=== PATIENT | male | born 1930 | race Caucasian/White ===

== ENCOUNTER 2020-01-31 00:38 | Inpatient (IN) | payer MEDICARE ==
--- NOTE | 2020-01-31 01:27 | ER Document Report ---
ED Medical Screen (RME) - General Chief Complaint: Altered Mental Status Stated Complaint: BACK PAIN, SYNCOPE, FLU SYMPTOMS Time Seen by Provider: 01/31/20 01:21 Mode of Arrival: Ambulatory Information source: Patient Notes: 89-year-old male being brought in by his son for 3 syncopal episodes today as well as weakness and inability to walk his normal distances. No recent illness. Physical exam General: No acute distress, nontoxic Cardiac regular rate and rhythm Pulmonary: No respiratory distress Abdomen soft nondistended Musculoskeletal: Midline lumbar tenderness no step-off Neurologic: Deaf, no focal neuro deficits - Related Data Allergies/Adverse Reactions: No Known Allergies Allergy (Unverified 01/31/20 01:12) Past Medical History - Social History Frequency of alcohol use: None Drug Abuse: None Physical Exam - Vital signs Vitals: Pulse Resp BP Pulse Ox 74 14 106/56 L 95 01/31/20 01:02 01/31/20 01:02 01/31/20 01:02 01/31/20 01:02 Course - Vital Signs Vital signs: Temp Pulse Resp BP Pulse Ox 98.6 F 74 14 106/56 L 95 01/31/20 01:06 01/31/20 01:02 01/31/20 01:02 01/31/20 01:02 01/31/20 01:02
[2020-01-31 01:50] LABS: ABSOLUTE BASOPHILS # (AUTO) 0.1 10^3/uL (0.0-0.2); ABSOLUTE LYMPHOCYTES (AUTO) 0.9 10^3/uL (0.5-4.7); ABSOLUTE MONOCYTES (AUTO) 1.4 10^3/uL (0.1-1.4); ABSOLUTE NEUT (AUTO) 11.5 10^3/uL (1.7-8.2); BASOPHILS % (AUTO) 0.5 % (0-2); EOSINOPHILS % (AUTO) 0.1 % (0-6); HEMATOCRIT 46.9 % (37.9-51.0); HEMOGLOBIN 16.1 g/dL (13.5-17.0); LYMPHOCYTES % (AUTO) 6.4 % (13-45); MEAN CORPUSCULAR HEMOGLOBIN 31.9 pg (27.0-33.4); MEAN CORPUSCULAR HGB CONC 34.2 g/dL (32.0-36.0); MEAN CORPUSCULAR VOLUME 93 fl (80-97); MONOCYTES % (AUTO) 10.4 % (3-13); PLATELET COUNT 133 10^3/uL (150-450); RED BLOOD COUNT 5.04 10^6/uL (4.35-5.55); RED CELL DISTRIBUTION WIDTH 14.5 % (11.5-14.0); SEGMENTED NEUTROPHILS % (AUTO) 82.6 % (42-78); TOTAL CELLS COUNTED % (AUTO) 100 %; WHITE BLOOD COUNT 13.9 10^3/uL (4.0-10.5)
[2020-01-31 02:01] LABS: INTERNATIONAL RATION (INR) 1.12; PROTHROMBIN TIME 14.6 SEC (11.4-15.4)
[2020-01-31 02:02] LABS: PARTIAL THROMBOPLASTIN TIME 30.3 SEC (23.5-35.8)
[2020-01-31 02:12] LABS: ALKALINE PHOSPHATASE 71 U/L (38-126); ANION GAP 11 (5-19); ASPARTATE AMINO TRANSFERASE 22 U/L (17-59); BILIRUBIN,DIRECT 0.4 mg/dL (0.0-0.4); BILIRUBIN,TOTAL 2.2 mg/dL (0.2-1.3); BLOOD UREA NITROGEN 21 mg/dL (7-20); CARBON DIOXIDE 25 mmol/L (22-30); CHLORIDE 101 mmol/L (98-107); GLUCOSE 157 mg/dL (75-110); POTASSIUM 4.7 mmol/L (3.6-5.0); TOTAL PROTEIN 6.3 g/dL (6.3-8.2)
[2020-01-31 02:33] LABS: APPEARANCE,URINE CLOUDY; BILIRUBIN,URINE NEGATIVE (NEGATIVE); COLOR,URINE YELLOW; GLUCOSE, URINE >=500 mg/dL (NEGATIVE); KETONES,URINE NEGATIVE (NEGATIVE); PROTEIN,URINE 30 mg/dL (NEGATIVE); URINE SPECIFIC GRAVITY 1.026; UROBILINOGEN,URINE NEGATIVE mg/dL (<2.0)
--- NOTE | 2020-01-31 03:09 | RADIOLOGY REPORT (SQ) ---
COMPLETED DATE/TME: 01/31/2020 01:21 EXAM: CT head without contrast. INDICATION: Syncope. TECHNIQUE: Contiguous axial CT images of the brain. Intravenous contrast: Absent. DLP 1028 mGy-cm. This exam was performed according to our departmental dose-optimization program, which includes automated exposure control, adjustment of the mA and/or kV according to patient size and/or use of iterative reconstruction technique. COMPARISON: None. FINDINGS: Subcutaneous: Unremarkable. No acute intracranial hemorrhage. Brain volume is age-appropriate. There are mild periventricular and deep white matter chronic microvascular changes. No midline shift. No mass effect. Ventricles: No hydrocephalus. Johnson-white differentiation preserved. Paranasal sinuses/mastoid air cells: Mucus retention cyst in the right ethmoid air cells. No air-fluid levels. Mastoid air cells are clear. Bones/orbits: Visualized portions are unremarkable. IMPRESSION: No acute intracranial abnormality.
--- NOTE | 2020-01-31 03:14 | RADIOLOGY REPORT (SQ) ---
COMPLETED DATE/TME: 01/31/2020 01:21 EXAM: CT cervical spine without contrast. INDICATION: Trauma. Neck pain. TECHNIQUE: Contiguous axial CT images of the cervical spine. Intravenous contrast: Absent. Reformats: MPRs created and utilized. DLP 445 mGy-cm. This exam was performed according to our departmental dose-optimization program, which includes automated exposure control, adjustment of the mA and/or kV according to patient size and/or use of iterative reconstruction technique. COMPARISON: None. FINDINGS: Alignment: Mild grade 1 anterolisthesis of C7 over T1. Fracture: No acute fracture or subluxation. Old healed bilateral first rib fractures are noted. Odontoid process: Intact. Prevertebral soft tissues: No edema. Spondylosis: There is multilevel spondylosis with disc space narrowing, endplate sclerosis, subchondral cysts and marginal osteophytes. There is multilevel facet arthropathy with ankylosis of the left C2-C3 facet joints. There is severe left-sided neural foraminal narrowing at C3-C4. There is moderate right-sided neural foraminal narrowing at C3-C4 and C4-C5. Other: None. IMPRESSION: 1. No CT evidence of acute osseous injury of the cervical spine.
--- NOTE | 2020-01-31 03:18 | RADIOLOGY REPORT (SQ) ---
COMPLETED DATE/TME: 01/31/2020 01:21 EXAM: Single view chest. INDICATION: Syncope. COMPARISON: Chest x-ray: None. FINDINGS: Cardiac silhouette: Unremarkable. Cecilia: Unremarkable. Lobar consolidation: None. Pleural effusion: None. Pneumothorax: None. Other: Median sternotomy wires. Bones: Unremarkable. Other: None. IMPRESSION: 1. No acute cardiopulmonary process.
--- NOTE | 2020-01-31 03:23 | RADIOLOGY REPORT (SQ) ---
INDICATION: syncope. Back pain TECHNIQUE: 5 view(s) of the lumbar spine. 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 No anteroposterior subluxation. Mild remodeling. Osteoarthritis. Vertebral body heights are well-maintained. Aortic calcification which appears to have a borderline aneurysm at 2.7 cm. Psoas margins are clean and regular. IMPRESSION: No evidence of acute displaced fracture of the lumbar spine. Scoliosis. Osteoarthritis. Small infrarenal AAA
--- NOTE | 2020-01-31 08:34 | EKG REPORT ---
SEVERITY:- ABNORMAL ECG - SINUS RHYTHM LEFT ANTERIOR FASCICULAR BLOCK CONSIDER RIGHT VENTRICULAR HYPERTROPHY BORDERLINE R WAVE PROGRESSION, ANTERIOR LEADS : Confirmed by: Hyacinth Baltazar MD 31-Jan-2020 08:33:37
[2020-01-31] MEDS ORDERED: NORMAL SALINE 1000 ML 1,000 ML IV ONE (10:06)
[2020-01-31] MEDS ORDERED: CEFTRIAXONE 1 GM/D5W RTU 1 GM/50 ML RTUPB IV ONE (10:06)
--- NOTE | 2020-01-31 11:39 | ER Document Report ---
ED Dizziness/Weakness - General Chief Complaint: Altered Mental Status Stated Complaint: BACK PAIN, SYNCOPE, FLU SYMPTOMS Time Seen by Provider: 01/31/20 01:21 Primary Care Provider: VINCENT MASTERSON MD [Primary Care Provider] - Follow up as needed Mode of Arrival: Ambulatory Information source: Patient, Relative - Son - [facility] Notes: Patient is brought in by family after several episodes of syncope yesterday. Most of the history is obtained from the son whom the patient lives with. The son states that is just the 2 of them in the house. He states that he came home yesterday and found stool all over the bathroom. He states when he asked his father what happened his father told him that he passed out but does not remember why. The son states that his father then had 2 more episodes of syncope throughout yesterday. He states that he was also complaining of low back pain yesterday that was severe enough that he was having a hard time walking. He states that the pain was there before he started having the episodes of syncope and increased after the syncope. Patient is on a known blood thinners. 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 He states that he gets some occa sional infections of the penis area and is currently on an antifungal for an infection in this area. The patient does states he has some dysuria. No fevers. He states that his low back pain was severe and constant. Is worse with movement and better with rest. There is no significant radiation of this pain. It is still present but significantly better than yesterday. No significant chest pain or shortness of breath. - Related Data Allergies/Adverse Reactions: No Known Allergies Allergy (Unverified 01/31/20 01:12) Past Medical History - General Information source: Patient - Social History Smoking Status: Former Smoker Frequency of alcohol use: None Drug Abuse: None Family History: Reviewed & Not Pertinent Patient has homicidal ideation: No - Past Medical History Cardiac Medical History: Reports: Hx Heart Attack, Hx Hypercholesterolemia, Hx Hypertension Endocrine Medical History: Reports: Hx Diabetes Mellitus Type 2 GI Medical History: Reports: Hx Gastroesophageal Reflux Disease Musculoskeletal Medical History: Reports Hx Arthritis Past Surgical History: Reports: Hx Cardiac Surgery - triple bypass 1 stent Review of Systems - Review of Systems Constitutional: Malaise, Weakness. denies: Chills, Fever Cardiovascular: denies: Chest pain, Palpitations Respiratory: denies: Cough, Short of breath -: Yes All other systems reviewed and negative Physical Exam - Vital signs Vitals: Pulse Resp BP Pulse Ox 74 14 106/56 L 95 01/31/20 01:02 01/31/20 01:02 01/31/20 01:02 01/31/20 01:02 Interpretation: Normal - General General appearance: Appears well, Alert In distress: None - HEENT Head: Normocephalic, Atraumatic Ears: Normal Nasal: Normal Mouth/Lips: Normal Mucous membranes: Moist - Respiratory Respiratory status: No respiratory distress Chest status: Nontender Breath sounds: Normal Chest palpation: Normal - Cardiovascular Rhythm: Regular Heart sounds: Normal auscultation Murmur: No - Abdominal Inspection: Normal Distension: No distension Bowel sounds: Normal Tenderness: Nontender Organomegaly: No organomegaly - Genitourinary Inspection: Other - 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 This area is slightly erythematous and has watery white discharge.. - Back Back: Normal, Tender - Some mild diffuse tenderness to palpation lumbar area - Extremities General upper extremity: Normal inspection, Nontender, Normal color, Normal ROM, Normal temperature General lower extremity: Normal inspection, Nontender, Normal color, Normal ROM, Normal temperature, Normal weight bearing. No: Alexandria's sign - Neurological Cognition: Confused [place] Coma Scale Eye Opening: Spontaneous Geronimo Coma Scale Verbal: Confused Geronimo Coma Scale Motor: Obeys Commands Asia Coma Scale Total: 14 Speech: Normal Motor strength normal: LUE, RUE, LLE, RLE Sensory: Normal - Psychological Associated symptoms: Normal affect, Normal mood - Skin Skin Temperature: Warm Skin Moisture: Dry Skin Color: Normal Course - Re-evaluation Re-evalutation: 01/31/20 11:38 Patient presents with 3 episodes of syncope yesterday per son. He also has a urinary tract infection and an elevated white blood cell count. 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 At this time patient is stable with stable vital signs. Laboratories are remarkable for a urinary tract infection and an elevated white blood cell count. Given the patient's age past medical history and current unknown etiology of 3 episodes of syncope it seems prudent that patient is admitted for further evaluation and treatment. - Vital Signs Vital signs: Temp Pulse Resp BP Pulse Ox 98.2 F 76 15 136/69 H 98 01/31/20 08:23 01/31/20 08:20 01/31/20 11:01 01/31/20 11:00 01/31/20 11:01 - Laboratory Result Diagrams: 01/31/20 01:41 01/31/20 01:41 Laboratory results interpreted by me: 01/31/20 01/31/20 01/31/20 01:41 01:41 01:55 WBC 13.9 H RDW 14.5 H Plt Count 133 L Lymph % (Auto) 6.4 L Absolute Neuts (auto) 11.5 H Seg Neutrophils % 82.6 H Sodium 136.5 L BUN 21 H Est GFR (MDRD) Non-Af 58 L Glucose 157 H Total Bilirubin 2.2 H Urine Protein 30 H Urine Glucose (UA) >=500 H Urine Blood LARGE H Leukocyte Esterase Rfl LARGE H - Diagnostic Test Radiology reviewed: Image reviewed, Reports reviewed - EKG Interpretation by Me EKG shows normal: Sinus rhythm Rate: Normal - 72 Rhythm: NSR [place]/QRS: LAHB/LAFB Discharge - Discharge Clinical Impression: Syncope and collapse UTI (urinary tract infection) Qualifiers: Urinary tract infection type: acute cystitis Hematuria presence: without hematuria Qualified Code(s): N30.00 - Acute cystitis without hematuria Condition: Stable Disposition: ADMITTED INPATIENT Admitting Provider: Cameron (Hospitalist) Unit Admitted: Telemetry Referrals: VINCENT MASTERSON MD [Primary Care Provider] - Follow up as needed
[2020-01-31] MEDS ORDERED: NORMAL SALINE 1000 ML 1,000 ML IV PRN ×2 (12:59→19:58)
[2020-01-31] MEDS ORDERED: ACETAMINOPHEN 325 MG TABLET PO PRN (12:59)
[2020-01-31] MEDS ORDERED: MAGNESIUM HYDROXIDE SUSP 30 ML UDCUP PO PRN (12:59)
[2020-01-31] MEDS ORDERED: ONDANSETRON HCL INJ/PF 4 MG/2 ML SDV IV PRN (12:59)
[2020-01-31 14:01] LABS: ABSOLUTE BASOPHILS # (AUTO) 0.1 10^3/uL (0.0-0.2); ABSOLUTE MONOCYTES (AUTO) 1.1 10^3/uL (0.1-1.4); ABSOLUTE NEUT (AUTO) 9.4 10^3/uL (1.7-8.2); BASOPHILS % (AUTO) 0.7 % (0-2); EOSINOPHILS % (AUTO) 0.2 % (0-6); HEMATOCRIT 41.8 % (37.9-51.0); HEMOGLOBIN 14.5 g/dL (13.5-17.0); LYMPHOCYTES % (AUTO) 8.4 % (13-45); MEAN CORPUSCULAR HEMOGLOBIN 32.4 pg (27.0-33.4); MEAN CORPUSCULAR HGB CONC 34.7 g/dL (32.0-36.0); MEAN CORPUSCULAR VOLUME 93 fl (80-97); MONOCYTES % (AUTO) 9.8 % (3-13); PLATELET COUNT 110 10^3/uL (150-450); RED BLOOD COUNT 4.47 10^6/uL (4.35-5.55); RED CELL DISTRIBUTION WIDTH 14.2 % (11.5-14.0); SEGMENTED NEUTROPHILS % (AUTO) 80.9 % (42-78); TOTAL CELLS COUNTED % (AUTO) 100 %; WHITE BLOOD COUNT 11.6 10^3/uL (4.0-10.5)
[2020-01-31 14:26] LABS: ALBUMIN 3.2 g/dL (3.5-5.0); ALKALINE PHOSPHATASE 59 U/L (38-126); ANION GAP 8 (5-19); ASPARTATE AMINO TRANSFERASE 21 U/L (17-59); BILIRUBIN,DIRECT 0.5 mg/dL (0.0-0.4); BILIRUBIN,TOTAL 1.8 mg/dL (0.2-1.3); BLOOD UREA NITROGEN 20 mg/dL (7-20); CALCIUM 9.2 mg/dL (8.4-10.2); CARBON DIOXIDE 23 mmol/L (22-30); CHLORIDE 107 mmol/L (98-107); CREATINE KINASE 61 U/L (55-170); GLUCOSE 197 mg/dL (75-110); PHOSPHORUS 2.8 mg/dL (2.5-4.5); POTASSIUM 4.1 mmol/L (3.6-5.0); TOTAL PROTEIN 5.5 g/dL (6.3-8.2)
[2020-01-31 14:35] LABS: TROPONIN I 0.019 ng/mL
[2020-01-31] MEDS ORDERED: DEXTROSE 50%-WATER 25 GM/50 ML DISP.SYRIN IV PRN ×2 (17:35)
[2020-01-31] MEDS ORDERED: DEXTROSE 40% GEL 15 GM TUBE PO PRN ×2 (17:35)
[2020-01-31] MEDS ORDERED: GLUCAGON,HUMAN RECOMB 1 MG INJ IM PRN (17:35)
[2020-01-31] MEDS ORDERED: (PENDING PHARMACY ID) (Brimonidine Tartrate [Alphagan P] 1 DROP) OS SCH ×2 (18:00→18:15)
[2020-01-31] MEDS ORDERED: (PENDING PHARMACY ID) (Bimatoprost [Lumigan 0.01% Oph Soln 2.5 Ml/Bottle] 1 DROP) OU SCH (18:00)
--- NOTE | 2020-01-31 18:14 | PDOC H&P ---
History of Present Illness Admission Date/PCP: 01/31/20 12:01 VINCENT MASTERSON MD Patient complains of: Syncope History of Present Illness: ELIJAH RITTER is a 89 year old male with past medical history of [place] with stents, HLD, CAD, HTN, DMII, GERD, arthritis, AAA, and dementia who is brought to the emergency department by family on 01/30/2020 with concerns regarding multiple episodes of his syncope. Majority of the patient's history is obtained from the son whom the patient lives with. Patient son reports 4 syncopal episodes, one of which he witnessed. Per patient's son the first syncopal episode occurred after patient stepped out of the shower to pass a bowel movement. Patient's son came home to find stool on the bathroom floor and towels. The observed stool was pasty, thick and brown in color. No blood noted. Second episode occurred when patient was in the bathroom. This was unwitnessed and patient was found unconscious on the bathroom floor with his brief on but shorts at his ankles. Third episode after patient stood up from being in bed to go to the bathroom. He fell to the floor but maintained consciousness and recalls event. Fourth episode was witnessed. Patient and his son were walking down the stairs when patient asked to sit down, patient closed his eyes, rested his head on his son's arm, became stiff and came to within one minute. Per patient's son patient has 4 week history of frequent loose stools with associated lower abdominal pain. 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 Current 4 week history penile infection, on Fluconazole PO. Patient has reportedly been complaining of dysuria with a ssociated increased urinary frequency. When asked patient only complains of back pain. This is reportedly ongoing but has recently increased in severity since syncopal episodes. Evaluation in the emergency department significant for leukocytosis (11.6), thrombocytopenia (110), neutrophilia, CBC otherwise unremarkable. BMP noted hyperglycemia (197), lactic acidosis (2.8), hyperbilirubinemia (1.8), elevated BNP (1140). Urine analysis indicative of urinary tract infection. Vital signs stable. Radiographic studies were unremarkable. EKG sinus rhythm rate of 72bpm, LAHB/LAFB. Patient was treated with single dose of Ceftriaxone in the ED. Patient was subsequently refereed to hospital services for further evaluation and treatment. Past Medical History Cardiac Medical History: Reports: Congestive Heart Failure, Coronary Artery Disease, Myocardial Infarction, Hyperlipidema, Hypertension Neurological Medical History: Reports: Other - Dementia Endocrine Medical History: Reports: Diabetes Mellitus Type 2 GI Medical History: Reports: Gastroesophageal Reflux Disease Musculoskeltal Medical History: Reports: Arthritis Past Surgical History Past Surgical History: Reports: Cardiac Catheterization, Coronary Artery Bypass Graft, Coronary Stent, Other - Penile amputation Social History Information Source: Relative Lives with: Family Smoking Status: Former Smoker Electronic Cigarette use?: No Frequency of Alcohol Use: Rare Hx Recreational Drug Use: No Drugs: None Hx Prescription Drug Abuse: No - Advance Directive Resuscitation Status: Do Not Resuscitate Family History Family History: Reviewed & Not Pertinent Parental Family History Reviewed: Yes Children Family History Reviewed: Yes Sibling(s) Family History Reviewed.: Yes Medication/Allergy Home Medications: Aspirin [Ecotrin 81 mg EC Tablet] 81 mg PO DAILY 01/31/20 Atorvastatin Calcium [Lipitor 40 mg Tablet] 40 mg PO QHS 01/31/20 Bimatoprost [Lumigan 0.01% Oph Soln 2.5 ml/Bottle] 1 drop OU QPM 01/31/20 Brimonidine Tartrate [Alphagan P] 1 drop OS BID 01/31/20 Canagliflozin [Invokana] 100 mg PO [id number] 01/31/20 Cholecalciferol (Vitamin D3) [Vitamin D3 1000 Unit Tablet] 1,000 unit PO DAILY 01/31/20 Clopidogrel Bisulfate [Plavix 75 mg Tablet] 75 mg PO DAILY 01/31/20 Donepezil HCl [Aricept 5 mg Tablet] 10 mg PO DAILY 01/31/20 Furosemide [Lasix 20 mg Tablet] 20 mg PO QAM 01/31/20 Ipratropium [place] [Atrovent 0.06% Nasal [place]] 2 spray NASL TID 01/31/20 Isosorbide Mononitrate [Imdur 30 mg Tablet.er] 15 mg PO DAILY 01/31/20 Metoprolol Tartrate [Lopressor 25 mg Tablet] 12.5 mg PO Q12 01/31/20 Nitroglycerin [Nitrostat 0.4 mg (1/150 Gr) Tabs 25/Bottle] 1 tab SL Q5MP PRN 01/31/20 Omeprazole 40 mg PO DAILY 01/31/20 Potassium Chloride [Klor-Con 10 Meq Tablet ER] 10 meq PO DAILY 01/31/20 Sucralfate [Carafate 1 gm Tablet] 1 gm PO ACHS 01/31/20 Trazodone HCl [Desyrel 50 mg Tablet] 150 mg PO QHS 01/31/20 Allergies/Adverse Reactions: No Known Allergies Allergy (Unverified 01/31/20 01:12) Review of Systems Constitutional: PRESENT: weakness. ABSENT: anorexia, headache(s) Eyes: PRESENT: visual disturbances - Chronic Nose, Mouth, and Throat: ABSENT: headache(s) Cardiovascular: ABSENT: chest pain, dyspnea on exertion, edema, palpitations Respiratory: ABSENT: cough, dyspnea Gastrointestinal: PRESENT: diarrhea. ABSENT: abdominal pain, nausea, vomiting Genitourinary: PRESENT: dysuria, other - Increased urinary frequency. ABSENT: hematuria Musculoskeletal: PRESENT: back pain - Chronic Integumentary: PRESENT: erythema - Penis foreskin erythematous Neurological: PRESENT: dizziness, frequent falls, memory loss, syncope, weakness, other - Dementia. ABSENT: abnormal speech, paresthesias, tremor(s) Endocrine: ABSENT: polydipsia, polyphagia, polyuria Hematologic/Lymphatic: ABSENT: easy bleeding Physical Exam Vital Signs: Temp Pulse Resp BP Pulse Ox 98.4 F 74 21 H 110/65 91 L 01/31/20 13:00 01/31/20 11:20 01/31/20 14:01 01/31/20 14:00 01/31/20 14:01 Intake & Output 01/30/20 01/31/20 02/01/20 06:59 06:59 06:59 Intake Total 1050 Balance 1050 Weight 66.7 kg General appearance: PRESENT: no acute distress, hard of hearing Head exam: PRESENT: atraumatic, normocephalic Eye exam: PRESENT: EOMI, PERRLA. ABSENT: scleral icterus Ear exam: PRESENT: normal external ear exam. ABSENT: bleeding, drainage Mouth exam: PRESENT: moist, tongue midline Neck exam: PRESENT: full ROM. ABSENT: JVD, tenderness, thyromegaly Respiratory exam: PRESENT: clear to auscultation reyes, symmetrical, unlabored. ABSENT: accessory muscle use, crackles, decreased breath sounds, tachypnea, wheezes Cardiovascular exam: PRESENT: RRR, +S1, +S2. ABSENT: diastolic murmur, systolic murmur Pulses: PRESENT: normal radial pulses, normal dorsalis pedis pul Vascular exam: PRESENT: normal capillary refill GI/Abdominal exam: PRESENT: normal bowel sounds, soft. ABSENT: distended, firm, guarding, rigid, tenderness Rectal exam: PRESENT: deferred Extremities exam: PRESENT: full ROM. ABSENT: calf tenderness, clubbing, pedal edema Musculoskeletal exam: PRESENT: full ROM. ABSENT: deformity, dislocation Neurological exam: PRESENT: alert, awake, oriented to person, oriented to place Psychiatric exam: PRESENT: appropriate affect, normal mood Skin exam: PRESENT: erythema - Partial penile amputation the stump is covered by foreskin. The area is slightly erythematous with watery white discharge., skin tears - scattered, other - Scattered areas of ecchymosis. Thin skin.. ABSENT: abrasion Results Laboratory Results: 01/31/20 13:47 01/31/20 13:47 01/31/20 01/31/20 01/31/20 01:41 01:41 01:55 WBC 13.9 H RBC 5.04 Hgb 16.1 Hct 46.9 MCV 93 MCH 31.9 MCHC 34.2 RDW 14.5 H Plt Count 133 L Seg Neutrophils % 82.6 H Sodium 136.5 L Potassium 4.7 Chloride 101 Carbon Dioxide 25 Anion Gap 11 BUN 21 H Creatinine 1.18 Est GFR ( Amer) > 60 Glucose 157 H Lactic Acid Calcium 10.0 Phosphorus Magnesium Total Bilirubin 2.2 H AST 22 Alkaline Phosphatase 71 Total Protein 6.3 Albumin 4.0 Urine Color YELLOW Urine Appearance CLOUDY Urine pH 5.0 Ur Specific [place] 1.026 Urine Protein 30 H Urine Glucose (UA) >=500 H Urine Ketones NEGATIVE Urine Blood LARGE H Urine RBC (Auto) 36 01/31/20 01/31/20 01/31/20 13:47 13:47 13:47 WBC 11.6 H RBC 4.47 Hgb 14.5 Hct 41.8 MCV 93 MCH 32.4 MCHC 34.7 RDW 14.2 H Plt Count 110 L Seg Neutrophils % 80.9 H Sodium 137.6 Potassium 4.1 Chloride 107 Carbon Dioxide 23 Anion Gap 8 BUN 20 Creatinine 1.15 Est GFR ( Amer) > 60 Glucose 197 H Lactic Acid 2.8 H Calcium 9.2 Phosphorus 2.8 Magnesium 2.2 Total Bilirubin 1.8 H AST 21 Alkaline Phosphatase 59 Total Protein 5.5 L Albumin 3.2 L Urine Color Urine Appearance Urine pH Ur Specific [place] Urine Protein Urine Glucose (UA) Urine Ketones Urine Blood Urine RBC (Auto) 01/31/20 01/31/20 01/31/20 01:41 13:47 13:47 Creatine Kinase 61 Troponin I 0.017 0.019 NT-Pro-B Natriuret Pep 1140 H Impressions: Cervical Spine CT 01/31/20 01:21 IMPRESSION: 1. No CT evidence of acute osseous injury of the cervical spine. Chest X-Ray 01/31/20 01:21 IMPRESSION: 1. No acute cardiopulmonary process. Head CT 01/31/20 01:21 IMPRESSION: No acute intracranial abnormality. Lumbar Spine X-Ray 01/31/20 01: IMPRESSION: No evidence of acute displaced fracture of the lumbar spine. Scoliosis. Osteoarthritis. Small infrarenal AAA Assessment and Plan - Diagnosis (1) UTI (urinary tract infection) Qualifiers: Urinary tract infection type: acute cystitis Hematuria presence: without hematuria Qualified Code(s): N30.00 - Acute cystitis without hematuria Is this a current diagnosis for this admission?: Yes Plan: Patient's labs significant for leukocytosis and urinary tract infection. Urine cultures pending. Will treat with Ceftriaxone. (2) Syncope and collapse Is this a current diagnosis for this admission?: Yes Plan: Suspect this is secondary to infectious etiology and volume depletion. Cardiac etiology less likely. -UA positive for UTI. -Patient with recent hx of volume loss via diarrhea, decreased appetite, in creased urinary frequency -Monitor for improvement with therapy (3) Leukocytosis Is this a current diagnosis for this admission?: Yes Plan: Suspect secondary to UTI. his has improved with fluids. Will monitor with CBC in the morning. (4) Lactic acidosis Is this a current diagnosis for this admission?: Yes Plan: Suspect secondary to infectious etiology. Redraw order. Suspect this will improve with current treatment regimen. (5) Coronary artery disease Qualifiers: Coronary Disease-Associated Artery/Lesion type: bypass graft [place] vs. transplanted heart: gray[place] heart Associated angina: without angina Qualified Code(s): I25.810 - Atherosclerosis of coronary artery bypass graft(s) without angina pectoris Is this a current diagnosis for this admission?: Yes Plan: History significant for CAD. Troponin is consistent at a minimally elevated level, what I would expect in someone of his age/cardiac history. EKG unremarkable. Continue with home treatment regimen (6) Hypertension Qualifiers: Hypertension type: essential hypertension Qualified Code(s): I10 - Essential (primary) hypertension Is this a current diagnosis for this admission?: Yes Plan: Blood pressure is controlled. Hold lasix as to prevent further volume depletion. -Monitor closely for fluid overload. 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 Patient son states that this is a newer medication. Medication side effects reviewed, significant for fainting and increased urination. I plan to educate patient on known side effects. Consider holding medication in the future. (8) History of fungal skin infection Is this a current diagnosis for this admission?: Yes Plan: Patient's son reports history of fungal infection of the penile tissue. This is currently being treated with fluconazole. Physical exam significant for erythema with associated white watery discharge. Continue with fluconazole therapy. (9) Diabetes mellitus, controlled Qualifiers: Diabetes mellitus type: type 2 Diabetes mellitus mcc insulin use: without lobsterman use Diabetes mellitus complication status: without complication Qualified Code(s): E11.9 - Type 2 diabetes mellitus without complications Is this a current diagnosis for this admission?: Yes Plan: Patient's at home medications were reviewed. He is currently taking Invokana. This medication is know to put patient's at risk for increased urinary tract infections as well as fungal infections. Holding medication for length of admission. We will check A1c with a.m. lab work. Patient is placed on a consistent carb diet. Accu-Cheks before meals and at bedtime with Humalog for sliding scale coverage. Hypoglycemia protocol in place. Registered dietitian clinical unit educator consulted. - Time Time Spent with patient: 35 or more minutes Medications reviewed and adjusted accordingly: Yes Anticipated Discharge Disposition: Home, Self Care Anticipated Discharge Timeframe: within 48 hours - Inpatient Certification Based on my medical assessment, after consideration of the patient's comorbidities, presenting symptoms, or acuity I expect that the services needed warrant INPATIENT care.: Yes I certify that my determination is in accordance with my understanding of Medicare's requirements for reasonable and necessary INPATIENT services [42 CFR 412.3e].: Yes Medical Necessity: Failure to Improve With Outpatient Therapy, Significant Comorbidiites Make Outpatient Treatment Too Risky, Need Close Monitoring Due to Risk of Patient Decompensation, Need For IV Fluids, Need for IV Antibiotics, Risk of Complication if Not Cared For in Hospital Post Hospital Care: D/C or Transfer Summary
[2020-01-31] MEDS: LATANOPROST 0.005% OPH SOLN 2.5 ML OU SCH (19:00)
[2020-01-31] MEDS: TRAZODONE HCL 50 MG TABLET PO SCH (21:40)
[2020-01-31] MEDS: ATORVASTATIN CALCIUM 40 MG TABLET PO SCH (21:41)
[2020-01-31] MEDS: SUCRALFATE 1 GM TABLET PO SCH (21:41)
[2020-01-31] MEDS: IPRATROPIUM BROMIDE 0.06% NASAL SPRAY 15 ML NASL SCH (21:41)
[2020-01-31] MEDS ORDERED: METOPROLOL TARTRATE 25 MG TABLET PO SCH (22:00)
[2020-01-31] MEDS ORDERED: BRIMONIDINE TARTRATE 0.2% OPH SOLN 5 ML OS SCH (22:00)
[2020-02-01] MEDS ORDERED: METOPROLOL TARTRATE PF/INJ 5 MG/5 ML SDV IV PRN (01:21)
[2020-02-01] MEDS ORDERED: METOPROLOL TARTRATE PF/INJ 5 MG/5 ML SDV IV ONE (01:47)
[2020-02-01 03:44] LABS: HEMATOCRIT 42.6 % (37.9-51.0); MEAN CORPUSCULAR HEMOGLOBIN 32.5 pg (27.0-33.4); MEAN CORPUSCULAR HGB CONC 35.2 g/dL (32.0-36.0); MEAN CORPUSCULAR VOLUME 93 fl (80-97); PLATELET COUNT 109 10^3/uL (150-450); RED BLOOD COUNT 4.61 10^6/uL (4.35-5.55); RED CELL DISTRIBUTION WIDTH 14.3 % (11.5-14.0); WHITE BLOOD COUNT 10.7 10^3/uL (4.0-10.5)
[2020-02-01 04:14] LABS: ALBUMIN 3.1 g/dL (3.5-5.0); ALKALINE PHOSPHATASE 55 U/L (38-126); ANION GAP 6 (5-19); ASPARTATE AMINO TRANSFERASE 27 U/L (17-59); BILIRUBIN,DIRECT 0.4 mg/dL (0.0-0.4); BILIRUBIN,TOTAL 1.5 mg/dL (0.2-1.3); BLOOD UREA NITROGEN 21 mg/dL (7-20); CALCIUM 9.5 mg/dL (8.4-10.2); CARBON DIOXIDE 24 mmol/L (22-30); CHLORIDE 109 mmol/L (98-107); GLUCOSE 132 mg/dL (75-110); TOTAL PROTEIN 5.4 g/dL (6.3-8.2)
[2020-02-01] MEDS: IPRATROPIUM BROMIDE 0.06% NASAL SPRAY 15 ML NASL SCH ×3 (06:03→22:21)
[2020-02-01] MEDS: PANTOPRAZOLE SODIUM 40 MG TABLET.DR PO SCH (06:03)
[2020-02-01] MEDS: INSULIN LISPRO 100 UNIT/ML 3 ML VIAL SUBCUT SCH ×2 (09:36→12:24)
[2020-02-01] MEDS: CEFTRIAXONE 1 GM/D5W RTU 1 GM/50 ML RTUPB IV SCH (09:57)
[2020-02-01] MEDS: SUCRALFATE 1 GM TABLET PO SCH ×4 (09:59→22:21)
[2020-02-01] MEDS: DONEPEZIL HCL 5 MG TABLET PO SCH (09:59)
[2020-02-01] MEDS: METOPROLOL TARTRATE 25 MG TABLET PO SCH ×2 (09:59→22:21)
[2020-02-01] MEDS ORDERED: CLOPIDOGREL BISULFATE 75 MG TABLET PO SCH (10:00)
[2020-02-01] MEDS ORDERED: ASPIRIN 81 MG TABLET, ENT COATED PO SCH (10:00)
[2020-02-01] MEDS ORDERED: ENOXAPARIN SODIUM INJ 80 MG/0.8 ML DISP.SYRIN SUBCUT SCH (10:00)
[2020-02-01] MEDS ORDERED: ENOXAPARIN SODIUM INJ 30 MG/0.3 ML DISP.SYRIN SUBCUT SCH (10:00)
--- NOTE | 2020-02-01 14:44 | EKG REPORT ---
SEVERITY:- ABNORMAL ECG - SINUS RHYTHM LEFT ANTERIOR FASCICULAR BLOCK : Confirmed by: Hyacinth Baltazar MD 01-Feb-2020 14:43:19
--- NOTE | 2020-02-01 15:12 | PDOC CONSULTATION ---
Consultation-Blank Consultation: CARDIOLOGY CONSULTATION by Dr. Hyacinth Baltazar on 02/01/2020. Patient seen at 12:30 PM. 60 minutes spent on this patient with more than 50% of time spent in direct patient care. REASON FOR CONSULTATION: Patient with syncope. And history of paroxysmal atrial fibrillation and coronary artery disease. For evaluation. CONSULT REQUESTING PHYSICIAN: [facility] sandhu, [facility]. HISTORY OF PRESENT ILLNESS: History obtained from the chart and from patient's son. Patient has dementia and is pleasantly confused. Patient is a 89-year-old male with known history of hypertension, prior history of myocardial infarction history of coronary artery disease with coronary artery bypass graft surgery after stent placement, history of proximal atrial fibrillation, history of peripheral vascular disease, and history of diabetes mellitus admitted with as per the son's history for episodes of syncope. The patient was found to be weak and could not usually walk his usual distance. There is no fever chills or Reiger's. There is no complaints of chest pain. The syncopal episodes are brief and there was no seizure activity noted. No further information is obtained from the patient due to the patient's dementia. At present he appears to be comfortable. He does not appear to be in any distress. On evaluation in the emergency room he was noted to have a urinary tract infection which was treated with antibiotics. The patient also although he was not documented to be hypotensive had elevated lactic acid level suggestive of urinary tract infection, with sepsis. Last night the patient had a brief episode of atrial fibrillation with ventricular response in the 100s, and converted to sinus rhythm when his beta-natan was increased. As discussed with his primary care physician and the patient's son the patient used to be on Coumadin in the past but this was stopped due to difficulty regulating the patient's INR. There is no bleeding complications. At present the patient also appears to have had loose stools in the past few weeks. But there was no blood noted although the son states that once when he wiped the patient's anal region there is a's spot of bright red blood. There is no history of prior GI bleed. He also has a history of penile surgery from which he has had infections off and on. The question is the patient syncope whether this is due to sepsis causing hypotension and causing postural hypotension causing syncope versus secondary to atrial fibrillation with rapid ventricular response versus bradyarrhythmia secondary to conversion. When he converted to sinus rhythm in this hospital admission there was no significant pauses noted. His corrected Aldo Vascor is 5. As per the son there is no history of TIA or CVA. Of note the patient is on aspirin and Plavix, and is platelets are low. At 109 although there is no petechia or ecchymosis noted. Past Medical History Cardiac Medical History: Reports: Congestive Heart Failure, Coronary Artery Disease, Myocardial Infarction, Hyperlipidema, Hypertension Neurological Medical History: Reports: Other - Dementia Endocrine Medical History: Reports: Diabetes Mellitus Type 2 GI Medical History: Reports: Gastroesophageal Reflux Disease Musculoskeltal Medical History: Reports: Arthritis Past Surgical History Past Surgical History: Reports: Cardiac Catheterization, Coronary Artery Bypass Graft, Coronary Stent, Other - Penile amputation Social History Information Source: Relative Lives with: Family Smoking Status: Former Smoker Electronic Cigarette use?: No Frequency of Alcohol Use: Rare Hx Recreational Drug Use: No Drugs: None Hx Prescription Drug Abuse: No - Advance Directive Resuscitation Status: Do Not Resuscitate Family History Family History: Reviewed & Not Pertinent Parental Family History Reviewed: Yes Children Family History Reviewed: Yes Sibling(s) Family History Reviewed.: Yes Medication/Allergy Home Medications: Aspirin [Ecotrin 81 mg EC Tablet] 81 mg PO DAILY 01/31/20 Atorvastatin Calcium [Lipitor 40 mg Tablet] 40 mg PO QHS 01/31/20 Bimatoprost [Lumigan 0.01% Oph Soln 2.5 ml/Bottle] 1 drop OU QPM 01/31/20 Brimonidine Tartrate [Alphagan P] 1 drop OS BID 01/31/20 Canagliflozin [Invokana] 100 mg PO [id number] 01/31/20 Cholecalciferol (Vitamin D3) [Vitamin D3 1000 Unit Tablet] 1,000 unit PO DAILY 01/31/20 Clopidogrel Bisulfate [Plavix 75 mg Tablet] 75 mg PO DAILY 01/31/20 Donepezil HCl [Aricept 5 mg Tablet] 10 mg PO DAILY 01/31/20 Furosemide [Lasix 20 mg Tablet] 20 mg PO QAM 01/31/20 Ipratropium Peyton [Atrovent 0.06% Nasal [employer]] 2 spray NASL TID 01/31/20 Isosorbide Mononitrate [Imdur 30 mg Tablet.er] 15 mg PO DAILY 01/31/20 Metoprolol Tartrate [Lopressor 25 mg Tablet] 12.5 mg PO Q12 01/31/20 Nitroglycerin [Nitrostat 0.4 mg (1/150 Gr) Tabs 25/Bottle] 1 tab SL Q5MP PRN 01/31/20 Omeprazole 40 mg PO DAILY 01/31/20 Potassium Chloride [Klor-Con 10 Meq Tablet ER] 10 meq PO DAILY 01/31/20 Sucralfate [Carafate 1 gm Tablet] 1 gm PO ACHS 01/31/20 Trazodone HCl [Desyrel 50 mg Tablet] 150 mg PO QHS 01/31/20 Allergies/Adverse Reactions: No Known Allergies Allergy (Unverified 01/31/20 01:12) Current Medications Generic Name Dose Route Start Last Admin Trade Name Freq PRN Reason Stop Dose Admin Acetaminophen 650 mg 01/31/20 12:59 Tylenol 325 Mg Tablet PO 03/01/20 12:58 Q4HP PRN FOR PAIN OR TEMP Aspirin 81 mg 02/01/20 10:00 02/01/20 09:59 Ecotrin 81 Mg Ec Tablet PO 03/02/20 09:59 81 mg DAILY BETHANY Administration Atorvastatin Calcium 40 mg 01/31/20 22:00 02/01/20 22:21 Lipitor 40 Mg Tablet PO 03/01/20 21:59 40 mg QHS BETHANY Administration Clopidogrel Bisulfate 75 mg 02/01/20 10:00 02/01/20 09:59 Plavix 75 Mg Tablet PO 03/02/20 09:59 75 mg DAILY BETHANY Administration Donepezil HCl 10 mg 02/01/20 10:00 02/01/20 09:59 Aricept 5 Mg Tablet PO 03/02/20 09:59 10 mg DAILY BETHANY Administration Ceftriaxone Sodium/Dextrose 1 gm in 50 mls @ 100 mls/hr 02/01/20 10:00 02/01/20 10:30 Rocephin Rtu 1 Gm/D5w 50 Ml Premix IV 02/08/20 09:59 Infused DAILY BETHANY Infusion Ipratropium [place] 2 spray 01/31/20 22:00 02/01/20 22:21 Atrovent 0.06% Nasal [employer] NASL 03/01/20 21:59 2 spr Q8 BETHANY Administration Latanoprost 1 drop 01/31/20 19:00 02/01/20 18:17 Xalatan 0.005% Oph Soln 2.5 Ml OU 03/01/20 18:59 1 drop QPM BETHANY Administration Magnesium Hydroxide 30 ml 01/31/20 12:59 Milk Of Magnesia 30 Ml Udcup PO 03/01/20 12:58 HSP PRN FOR CONSTIPATION Metoprolol Tartrate 25 mg 02/01/20 10:00 02/01/20 22:21 Lopressor 25 Mg Tablet PO 03/02/20 09:59 25 mg Q12 BETHANY Administration Ondansetron HCl 4 mg 01/31/20 12:59 Zofran Inj/Pf 4 Mg/2 Ml Sdv IV 03/01/20 12:58 Q4HP PRN FOR NAUSEA/VOMITING Pantoprazole Sodium 40 mg 02/01/20 06:00 02/01/20 06:[address] Tablet PO 03/02/20 05:59 Not Given Q6AM BETHANY Patient Own Medication 1 drop 01/31/20 18:15 Brimonidine Tartrate [Alphagan P] OS 03/01/20 18:14 .BID BETHANY Sodium Chloride 2.5 ml 01/31/20 14:00 02/01/20 22:21 Saline Flush 2.5 Ml Monoject Prefil Syrin IV 03/01/20 13:59 2.5 ml Q8 BETHANY Administration Sucralfate 1 gm 01/31/20 22:00 02/01/20 22:21 Carafate 1 Gm Tablet PO 03/01/20 21:59 1 gm ACHS BETHANY Administration Trazodone HCl 150 mg 01/31/20 22:00 02/01/20 22:19 Desyrel 50 Mg Tablet PO 03/01/20 21:59 150 mg QHS BETHANY Administration Discontinued Medications Generic Name Dose Route Start Last Admin Trade Name Freq PRN Reason Stop Dose Admin Dextrose 12.5 gm 01/31/20 17:35 Dextrose Inj 50% Syringe (25 Gm/50 Ml) IV 03/01/20 17:34 PRN PRN FOR BG 50-69 IN ALERT PATIENT Protocol Dextrose 25 gm 01/31/20 17:35 Dextrose Inj 50% Syringe (25 Gm/50 Ml) IV 03/01/20 17:34 PRN PRN PER PROTOCOL Protocol Enoxaparin Sodium 30 mg 02/01/20 10:00 Lovenox Inj 30 Mg/0.3 Ml Disp.Syrin SUBCUT 03/02/20 09:59 DAILY BETHANY Enoxaparin Sodium 70 mg 02/01/20 10:00 Lovenox Inj 80 Mg/0.8 Ml Disp.Syrin SUBCUT 03/02/20 09:59 Q12 BETHANY Glucagon 1 mg 01/31/20 17:35 Glucagen Inj 1 Mg Vial IM 03/01/20 17:34 PRN PRN Evaluate for BG < 70 Protocol Glucose 15 gm 01/31/20 17:35 Glutose 40% Gel 15 Gm Tube PO 03/01/20 17:34 PRN PRN FOR BG 50-69 IN ALERT PATIENT Protocol Glucose 30 gm 01/31/20 17:35 Glutose 40% Gel 15 Gm Tube PO 03/01/20 17:34 PRN PRN FOR BG < 50 IN ALERT PATIENT Protocol Sodium Chloride 1,000 mls @ 0 mls/hr 01/31/20 10:06 01/31/20 11:34 Nacl 0.9% 1000 Ml Iv Soln IV 01/31/20 10:07 Infused BOLUS ONE Infusion Wide Open Ceftriaxone Sodium/Dextrose 1 gm in 50 mls @ 100 mls/hr 01/31/20 10:06 01/31/20 11:10 Rocephin Rtu 1 Gm/D5w 50 Ml Premix IV 01/31/20 10:35 Infused NOW ONE Infusion Sodium Chloride 1,000 mls @ 150 mls/hr 01/31/20 12:59 Nacl 0.9% 1000 Ml Iv Soln IV 03/01/20 12:58 CONTINUOUS PRN THIS MED IS NOT "PRN" Sodium Chloride 1,000 mls @ 75 mls/hr 01/31/20 19:58 Nacl 0.9% 1000 Ml Iv Soln IV 03/01/20 19:57 CONTINUOUS PRN THIS MED IS NOT "PRN" Insulin Human Lispro 0 - 12 unit 02/01/20 08:00 02/01/20 12:24 Humalog Insulin 100 Unit/1 Ml 3 Ml Vial SUBCUT 03/02/20 07:59 Not Given AC [facility] Protocol Metoprolol Tartrate 12.5 mg 01/31/20 22:00 01/31/20 21:40 Lopressor 25 Mg Tablet PO 03/01/20 21:59 12.5 mg Q12 BETHANY Administration Metoprolol Tartrate 2.5 mg 02/01/20 01:21 02/01/20 01:54 Lopressor Inj/Pf 5 Mg/5 Ml Sdv IV 03/02/20 01:20 2.5 mg Q6HP PRN Administration Give For Hr > [120] Metoprolol Tartrate Confirm 02/01/20 01:47 02/01/20 01:57 Lopressor Inj/Pf 5 Mg/5 Ml Sdv Administered 02/01/20 01:48 Not Given Dose 5 mg IV .STK-MED ONE RESUSCITATION STATUS: The patient is a DNR. The patient's son Mr. Dickson Conde is a surrogate healthcare decision maker Review of Systems: As per chart and also as per the patient's son. Constitutional: PRESENT: weakness. ABSENT: anorexia, headache(s) Eyes: PRESENT: visual disturbances - Chronic Nose, Mouth, and Throat: ABSENT: headache(s) Cardiovascular: ABSENT: chest pain, dyspnea on exertion, edema, palpitations Respiratory: ABSENT: cough, dyspnea Gastrointestinal: PRESENT: diarrhea. ABSENT: abdominal pain, nausea, vomiting Genitourinary: PRESENT: dysuria, other - Increased urinary frequency. ABSENT: hematuria Musculoskeletal: PRESENT: back pain - Chronic Integumentary: PRESENT: erythema - Penis foreskin erythematous Neurological: PRESENT: dizziness, frequent falls, memory loss, syncope, weakness, other - Dementia. ABSENT: abnormal speech, paresthesias, tremor(s) Endocrine: ABSENT: polydipsia, polyphagia, polyuria Hematologic/Lymphatic: ABSENT: easy bleeding PHYSICAL EXAMINATION: The patient is well-built and well-nourished. Appears to be in no acute distress. Selected Entries 02/01/20 12:00 Temperature 98.4 F Temperature Oral Source Pulse Rate 89 Respiratory 16 Rate Blood Pressure 132/64 H [Right Upper Arm] Blood Pressure 86 Mean [Right Upper Arm] Blood Pressure Supine Position [Right Upper Arm] O2 Sat by Pulse 96 Oximetry Oxygen Delivery Room Air Method ( includes room air) HEAD: Is atraumatic normocephalic. EYES: Pupils equal round regular reactive light accommodation. There is no conjunctival pallor. There is no scleral icterus. ENT is negative. Neck: Is supple. There is no JVD. Carotids are equal there is no bruit. There is no lymphadenopathy. There is no goiter. SKIN: There is no skin rashes. There is no sis-care ecchymosis. LUNGS: There is no accessory muscle respiration use. Trachea central. Lungs are clear to auscultation percussion without any rhonchi rales or wheezing. HEART: S1-S2 is heard. S1 is of normal intensity. There is no S3 gallop. There is an S4 gallop. There is systolic murmur left sternal border and the apex there is no rub. ABDOMEN: Soft. Nontender there is no hepatosplenomegaly bowel sounds are well heard. Extremities: Femorals are diminished there is no femoral bruits. Leg pulses are diminished. There is no pedal edema. There is no DVT or cellulitis. There is no cyanosis or clubbing. [employer] INS[employer]. Patient is conscious confused pleasantly. With no focal deficits. PSYCHIATRIC: The patient does not appear to be withdrawn or agitated or anxious. Labs- Entire Visit 01/31/20 01/31/20 01/31/20 01:41 01:41 01:41 WBC 13.9 H RBC 5.04 Hgb 16.1 Hct 46.9 MCV 93 MCH 31.9 MCHC 34.2 RDW 14.5 H Plt Count 133 L Lymph % (Auto) 6.4 L [place] % (Auto) 10.4 Eos % (Auto) 0.1 Baso % (Auto) 0.5 Absolute Neuts (auto) 11.5 H Absolute Lymphs (auto) 0.9 Absolute Monos (auto) 1.4 Absolute Eos (auto) 0.0 Absolute Basos (auto) 0.1 Seg Neutrophils % 82.6 H PT 14.6 INR 1.12 APTT 30.3 Sodium 136.5 L Potassium 4.7 Chloride 101 Carbon Dioxide 25 Anion Gap 11 BUN 21 H Creatinine 1.18 Est GFR ( Amer) > 60 Est GFR (MDRD) Non-Af 58 L Glucose 157 H POC Glucose Hemoglobin A1c % Lactic Acid Calcium 10.0 Phosphorus Magnesium Total Bilirubin 2.2 H Direct Bilirubin 0.4 Neonat Total Bilirubin Not Reportable Neonat Direct Bilirubin Not Reportable Neonat Indirect Bili Not Reportable AST 22 ALT 23 Alkaline Phosphatase 71 Creatine Kinase Troponin I NT-Pro-B Natriuret Pep Total Protein 6.3 Albumin 4.0 Urine Color Urine Appearance Urine pH Ur Specific [place] Urine Protein Urine Glucose (UA) Urine Ketones Urine Blood Urine Nitrite (Reflex) Urine Bilirubin Urine Urobilinogen Leukocyte Esterase Rfl Urine RBC (Auto) Urine Bacteria (Auto) Urine WBC (Reflex) Urine WBC Clumps Squamous Epi Cells Auto Urine Mucus (Auto) Urine Ascorbic Acid 01/31/20 01/31/20 01/31/20 01:41 01:55 13:47 WBC RBC Hgb Hct MCV MCH MCHC RDW Plt Count Lymph % (Auto) [place] % (Auto) Eos % (Auto) Baso % (Auto) Absolute Neuts (auto) Absolute Lymphs (auto) Absolute Monos (auto) Absolute Eos (auto) Absolute Basos (auto) Seg Neutrophils % PT INR APTT Sodium 137.6 Potassium 4.1 Chloride 107 Carbon Dioxide 23 Anion Gap 8 BUN 20 Creatinine 1.15 Est GFR ( Amer) > 60 Est GFR (MDRD) Non-Af > 60 Glucose 197 H POC Glucose Hemoglobin A1c % Lactic Acid Calcium 9.2 Phosphorus 2.8 Magnesium 2.2 Total Bilirubin 1.8 H Direct Bilirubin 0.5 H Neonat Total Bilirubin Not Reportable Neonat Direct Bilirubin Not Reportable Neonat Indirect Bili Not Reportable AST 21 ALT 20 Alkaline Phosphatase 59 Creatine Kinase 61 Troponin I 0.017 NT-Pro-B Natriuret Pep Total Protein 5.5 L Albumin 3.2 L Urine Color YELLOW Urine Appearance CLOUDY Urine pH 5.0 Ur Specific [place] 1.026 Urine Protein 30 H Urine Glucose (UA) >=500 H Urine Ketones NEGATIVE Urine Blood LARGE H Urine Nitrite (Reflex) NEGATIVE Urine Bilirubin NEGATIVE Urine Urobilinogen NEGATIVE Leukocyte Esterase Rfl LARGE H Urine RBC (Auto) 36 Urine Bacteria (Auto) TRACE Urine WBC (Reflex) > 182 Urine WBC Clumps MOD Squamous Epi Cells Auto <1 Urine Mucus (Auto) RARE Urine Ascorbic Acid NEGATIVE 01/31/20 01/31/20 01/31/20 13:47 13:47 13:47 WBC 11.6 H RBC 4.47 Hgb 14.5 Hct 41.8 MCV 93 MCH 32.4 MCHC 34.7 RDW 14.2 H Plt Count 110 L Lymph % (Auto) 8.4 L [place] % (Auto) 9.8 Eos % (Auto) 0.2 Baso % (Auto) 0.7 Absolute Neuts (auto) 9.4 H Absolute Lymphs (auto) 1.0 Absolute Monos (auto) 1.1 Absolute Eos (auto) 0.0 Absolute Basos (auto) 0.1 Seg Neutrophils % 80.9 H PT INR APTT Sodium Potassium Chloride Carbon Dioxide Anion Gap BUN Creatinine Est GFR ( Amer) Est GFR (MDRD) Non-Af Glucose POC Glucose Hemoglobin A1c % Lactic Acid 2.8 H Calcium Phosphorus Magnesium Total Bilirubin Direct Bilirubin Neonat Total Bilirubin Neonat Direct Bilirubin Neonat Indirect Bili AST ALT Alkaline Phosphatase Creatine Kinase Troponin I 0.019 NT-Pro-B Natriuret Pep 1140 H Total Protein Albumin Urine Color Urine Appearance Urine pH Ur Specific [place] Urine Protein Urine Glucose (UA) Urine Ketones Urine Blood Urine Nitrite (Reflex) Urine Bilirubin Urine Urobilinogen Leukocyte Esterase Rfl Urine RBC (Auto) Urine Bacteria (Auto) Urine WBC (Reflex) Urine WBC Clumps Squamous Epi Cells Auto Urine Mucus (Auto) Urine Ascorbic Acid 01/31/20 01/31/20 01/31/20 13:47 18:04 21:05 WBC RBC Hgb Hct MCV MCH MCHC RDW Plt Count Lymph % (Auto) [place] % (Auto) Eos % (Auto) Baso % (Auto) Absolute Neuts (auto) Absolute Lymphs (auto) Absolute Monos (auto) Absolute Eos (auto) Absolute Basos (auto) Seg Neutrophils % PT INR APTT Sodium Potassium Chloride Carbon Dioxide Anion Gap BUN Creatinine Est GFR ( Amer) Est GFR (MDRD) Non-Af Glucose POC Glucose Hemoglobin A1c % 6.7 H Lactic Acid 3.1 H 2.7 H Calcium Phosphorus Magnesium Total Bilirubin Direct Bilirubin Neonat Total Bilirubin Neonat Direct Bilirubin Neonat Indirect Bili AST ALT Alkaline Phosphatase Creatine Kinase Troponin I NT-Pro-B Natriuret Pep Total Protein Albumin Urine Color Urine Appearance Urine pH Ur Specific [place] Urine Protein Urine Glucose (UA) Urine Ketones Urine Blood Urine Nitrite (Reflex) Urine Bilirubin Urine Urobilinogen Leukocyte Esterase Rfl Urine RBC (Auto) Urine Bacteria (Auto) Urine WBC (Reflex) Urine WBC Clumps Squamous Epi Cells Auto Urine Mucus (Auto) Urine Ascorbic Acid 02/01/20 02/01/20 02/01/20 00:20 03:35 03:35 WBC 10.7 H RBC 4.61 Hgb 15.0 Hct 42.6 MCV 93 MCH 32.5 MCHC 35.2 RDW 14.3 H Plt Count 109 L Lymph % (Auto) [place] % (Auto) Eos % (Auto) Baso % (Auto) Absolute Neuts (auto) Absolute Lymphs (auto) Absolute Monos (auto) Absolute Eos (auto) Absolute Basos (auto) Seg Neutrophils % PT INR APTT Sodium 139.0 Potassium 4.0 Chloride 109 H Carbon Dioxide 24 Anion Gap 6 BUN 21 H Creatinine 1.01 Est GFR ( Amer) > 60 Est GFR (MDRD) Non-Af > 60 Glucose 132 H POC Glucose Hemoglobin A1c % Lactic Acid 2.0 Calcium 9.5 Phosphorus Magnesium Total Bilirubin 1.5 H Direct Bilirubin 0.4 Neonat Total Bilirubin Not Reportable Neonat Direct Bilirubin Not Reportable Neonat Indirect Bili Not Reportable AST 27 ALT 23 Alkaline Phosphatase 55 Creatine Kinase Troponin I NT-Pro-B Natriuret Pep Total Protein 5.4 L Albumin 3.1 L Urine Color Urine Appearance Urine pH Ur Specific [place] Urine Protein Urine Glucose (UA) Urine Ketones Urine Blood Urine Nitrite (Reflex) Urine Bilirubin Urine Urobilinogen Leukocyte Esterase Rfl Urine RBC (Auto) Urine Bacteria (Auto) Urine WBC (Reflex) Urine WBC Clumps Squamous Epi Cells Auto Urine Mucus (Auto) Urine Ascorbic Acid 02/01/20 02/01/20 02/01/20 03:35 09:33 12:05 WBC RBC Hgb Hct MCV MCH MCHC RDW Plt Count Lymph % (Auto) [place] % (Auto) Eos % (Auto) Baso % (Auto) Absolute Neuts (auto) Absolute Lymphs (auto) Absolute Monos (auto) Absolute Eos (auto) Absolute Basos (auto) Seg Neutrophils % PT INR APTT Sodium Potassium Chloride Carbon Dioxide Anion Gap BUN Creatinine Est GFR ( Amer) Est GFR (MDRD) Non-Af Glucose POC Glucose 110 106 Hemoglobin A1c % Lactic Acid 1.6 Calcium Phosphorus Magnesium Total Bilirubin Direct Bilirubin Neonat Total Bilirubin Neonat Direct Bilirubin Neonat Indirect Bili AST ALT Alkaline Phosphatase Creatine Kinase Troponin I NT-Pro-B Natriuret Pep Total Protein Albumin Urine Color Urine Appearance Urine pH Ur Specific [place] Urine Protein Urine Glucose (UA) Urine Ketones Urine Blood Urine Nitrite (Reflex) Urine Bilirubin Urine Urobilinogen Leukocyte Esterase Rfl Urine RBC (Auto) Urine Bacteria (Auto) Urine WBC (Reflex) Urine WBC Clumps Squamous Epi Cells Auto Urine Mucus (Auto) Urine Ascorbic Acid 02/01/20 15:51 WBC RBC Hgb Hct MCV MCH MCHC RDW Plt Count Lymph % (Auto) [place] % (Auto) Eos % (Auto) Baso % (Auto) Absolute Neuts (auto) Absolute Lymphs (auto) Absolute Monos (auto) Absolute Eos (auto) Absolute Basos (auto) Seg Neutrophils % PT INR APTT Sodium Potassium Chloride Carbon Dioxide Anion Gap BUN Creatinine Est GFR ( Amer) Est GFR (MDRD) Non-Af Glucose POC Glucose 137 H Hemoglobin A1c % Lactic Acid Calcium Phosphorus Magnesium Total Bilirubin Direct Bilirubin Neonat Total Bilirubin Neonat Direct Bilirubin Neonat Indirect Bili AST ALT Alkaline Phosphatase Creatine Kinase Troponin I NT-Pro-B Natriuret Pep Total Protein Albumin Urine Color Urine Appearance Urine pH Ur Specific [place] Urine Protein Urine Glucose (UA) Urine Ketones Urine Blood Urine Nitrite (Reflex) Urine Bilirubin Urine Urobilinogen Leukocyte Esterase Rfl Urine RBC (Auto) Urine Bacteria (Auto) Urine WBC (Reflex) Urine WBC Clumps Squamous Epi Cells Auto Urine Mucus (Auto) Urine Ascorbic Acid Cervical Spine CT 01/31/20 01:21 IMPRESSION: 1. No CT evidence of acute osseous injury of the cervical spine. Chest X-Ray 01/31/20 01:21 IMPRESSION: 1. No acute cardiopulmonary process. Head CT 01/31/20 01:21 IMPRESSION: No acute intracranial abnormality. Lumbar Spine X-Ray 01/31/20 01:21 IMPRESSION: No evidence of acute displaced fracture of the lumbar spine. Scoliosis. Osteoarthritis. Small infrarenal AAA Patient admission EKG shows sinus rhythm. Left anterior fascicular block. Poor R wave progression anterior leads. Subsequent EKG shows sinus rhythm with left anterior fascicular block. The patient monitor strip shows runs of atrial fibrillation. IMPRESSION/RECOMMENDATION: 1. Syncope multiple episodes. The question is whether this is secondary to patient's urinary tract infection sepsis with hypotension versus secondary to atrial fibrillation either with rapid ventricular response versus pauses or bradyarrhythmia. Agree with present since the patient is on telemetry to increase the patient's Lopressor to 25 mg p.o. twice daily. 2. Paroxysmal atrial fibrillation: The patient is at present the patient in sinus rhythm. Continue beta-natan. Would recommend a outpatient 30-day event monitor. The patient's corrected Aldo vasc 2 score is 5 hence high risk of having a CVA. But the patient also is at a high risk for bleeding in view of the patient's age and the patient's thrombocytopenia. I have discussed chronic anticoagulation with the patient's son and the primary care physician. They are aware of the benefits and risks. The son is agreeable for the patient to be on Eliquis 2.5 mg p.o. twice daily. But will stop the patient's aspirin and Plavix since the patient's platelets are low. I have discussed in detail with the son especially that with Eliquis if there should be a bleeding complications there is no antidote. The son states that his father also he he has dementia he is able to take care of himself including activities of daily life. And the britney arvizu's son lives with the patient. 3. Urinary tract infection with possibly sepsis secondary to the patient's lactic acid levels being high. Continue antibiotics and gentle IV hydration. 4. Coronary artery disease. History of old [place]. History of coronary bypass graft surgery and history of stents. The patient has no anginal symptoms. There is no evidence of non-ST elevation [place] this admission. 5. Peripheral vascular disease. History of abdominal aortic aneurysm repair in the past. 6. 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 7. Diabetes mellitus: Continue monitoring the patient's blood sugars. 8. Dementia continue his anti-dementia medication. Note I have discussed the case in detail with the patient's son and also with the patient's primary care physician Dr. Roslyn Liriano in [place]. We are all in agreement to start the patient on Eliquis. But in view of the patient's platelets being low we will stop the patient's aspirin and Plavix and watch the patient closely. The above management plan was also discussed with the attending provider on the case. 60 minutes spent as patient more than 50% of the time spent in direct patient care. Medical decision making is of high complexity.
[2020-02-01] MEDS: LATANOPROST 0.005% OPH SOLN 2.5 ML OU SCH (18:17)
--- NOTE | 2020-02-01 18:29 | PDOC PROGRESS REPORT ---
Subjective Progress Note for:: 02/01/20 Subjective:: Patient is resting in bed. His son is not present at the time of evaluation. He has no complaints or concerns today. Discussed the case with patient's nurse at the time. She states that patient has been pleasant, has had no complaints and has primarily been resting. Reason For Visit: SYNCOPE,UTI Physical Exam Vital Signs: Temp Pulse Resp BP Pulse Ox 98.4 F 76 16 128/78 H 96 02/01/20 12:00 02/01/20 15:27 02/01/20 12:00 02/01/20 15:27 02/01/20 12:00 Intake & Output 01/31/20 02/01/20 02/02/20 06:59 06:59 06:59 Intake Total 1350 Balance 1350 Weight 66.7 kg 72.7 kg General appearance: PRESENT: no acute distress, hard of hearing, thin Head exam: PRESENT: atraumatic, normocephalic Eye exam: PRESENT: conjunctiva pink. ABSENT: scleral icterus Ear exam: PRESENT: normal external ear exam. ABSENT: bleeding, drainage Mouth exam: PRESENT: moist, tongue midline Neck exam: PRESENT: full ROM. ABSENT: lymphadenopathy, tenderness Respiratory exam: PRESENT: clear to auscultation reyes, symmetrical, unlabored. ABSENT: crackles, decreased breath sounds, tachypnea Cardiovascular exam: PRESENT: RRR. ABSENT: diastolic murmur, systolic murmur, tachycardia Pulses: PRESENT: normal radial pulses GI/Abdominal exam: PRESENT: normal bowel sounds, soft. ABSENT: distended, firm, guarding, tenderness Rectal exam: PRESENT: deferred Extremities exam: PRESENT: full ROM. ABSENT: calf tenderness, clubbing, pedal edema Musculoskeletal exam: PRESENT: ambulatory, full ROM. ABSENT: deformity, dislocation Neurological exam: PRESENT: alert, awake, oriented to person, oriented to place. ABSENT: motor sensory deficit Psychiatric exam: PRESENT: appropriate affect, normal mood. ABSENT: agitated Skin exam: PRESENT: dry, erythema - penile foreskin, warm Results Laboratory Results: 02/01/20 03:35 02/01/20 03:35 01/31/20 01/31/20 02/01/20 18:04 21:05 00:20 WBC RBC Hgb Hct MCV MCH MCHC RDW Plt Count Sodium Potassium Chloride Carbon Dioxide Anion Gap BUN Creatinine Est GFR ( Amer) Glucose Lactic Acid 3.1 H 2.7 H 2.0 Calcium Total Bilirubin AST Alkaline Phosphatase Total Protein Albumin 02/01/20 02/01/20 02/01/20 03:35 03:35 03:35 WBC 10.7 H RBC 4.61 Hgb 15.0 Hct 42.6 MCV 93 MCH 32.5 MCHC 35.2 RDW 14.3 H Plt Count 109 L Sodium 139.0 Potassium 4.0 Chloride 109 H Carbon Dioxide 24 Anion Gap 6 BUN 21 H Creatinine 1.01 Est GFR ( Amer) > 60 Glucose 132 H Lactic Acid 1.6 Calcium 9.5 Total Bilirubin 1.5 H AST 27 Alkaline Phosphatase 55 Total Protein 5.4 L Albumin 3.1 L 01/31/20 01/31/20 01/31/20 01:41 13:47 13:47 Creatine Kinase 61 Troponin I 0.017 0.019 NT-Pro-B Natriuret Pep 1140 H Impressions: Cervical Spine CT 01/31/20 01:21 IMPRESSION: 1. No CT evidence of acute osseous injury of the cervical spine. Chest X-Ray 01/31/20 01:21 IMPRESSION: 1. No acute cardiopulmonary process. Head CT 01/31/20 01:21 IMPRESSION: No acute intracranial abnormality. Lumbar Spine X-Ray 01/31/20 01:21 IMPRESSION: No evidence of acute displaced fracture of the lumbar spine. Scoliosis. Osteoarthritis. Small infrarenal AAA Assessment and Plan - Diagnosis (1) Atrial fibrillation, transient Is this a current diagnosis for this admission?: Yes Plan: Atrial Fibrillation with ventricular response, transient (2) UTI (urinary tract infection) Qualifiers: Urinary tract infection type: acute cystitis Hematuria presence: without hematuria Qualified Code(s): N30.00 - Acute cystitis without hematuria Is this a current diagnosis for this admission?: Yes Plan: With elevated lactic acid (resolved), hemodynamically stable (3) Syncope and collapse Is this a current diagnosis for this admission?: Yes (4) Leukocytosis Is this a current diagnosis for this admission?: Yes (5) Lactic acidosis Is this a current diagnosis for this admission?: Yes (6) Coronary artery disease Qualifiers: Coronary Disease-Associated Artery/Lesion type: bypass graft [place] vs. 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 Is this a current diagnosis for this admission?: Yes (9) History of fungal skin infection Is this a current diagnosis for this admission?: Yes (10) Diabetes mellitus, controlled Qualifiers: Diabetes mellitus type: type 2 Diabetes mellitus 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 Patient's son provides much of the patient's history as patient is hard of hearing and has history of dementia. Per son pt has x4 week history of loose stools with frequent complaints of abd pain. He is currently being treated for a fungal infection with antifungal therapy for the past x4 weeks. Evaluation in the emergency department significant for leukocytosis (11.6), thrombocytopenia (110), neutrophilia, CBC otherwise unremarkable. BMP noted hyperglycemia (197), lactic acidosis (2.8), hyperbilirubinemia (1.8), elevated BNP (1140). Urine analysis indicative of urinary tract infection. Vital signs stable. Radiographic studies were unremarkable. EKG sinus rhythm rate of 72bpm, LAHB/LAFB. Patient was treated with single dose of Ceftriaxone in the ED. Patient was subsequently refereed to hospital services for further evaluation and treatment. Atrial Fibrillation with ventricular response, Transient: Patient reportedly experience a transient episode of AFib last night as noted on telemetry. He was asymptomatic at the time. This was treated with Metoprolol and Lovenox was ordered. He did not receive Lovenox treatment. He returned to [facility] and has not gone into AFIB since. Per sydnee's PCP patient has known history of AFIB, previously treated with warfarin. Warfarin therapy was halted due to difficulty controlling INR. - CHADVASC score 5. He is at high risk of stroke. - Dr. Weaver, cardiology, was consulted on case. He agreed to see the patient and recommends treatment with anticoagulation therapy. - Dr. Weaver reportedly discussed patient's risk of stroke vs risk of bleed with the patient's son and patient's PCP. PCP agreed that both anticoagulation therapy and antiplatelet therapy may be necessary. - Dr. Weaver has increased sydnee's Lopressor to 25mg p.o. BID. - Outpatient therapy with Eliquis, as recommended by Dr. Weaver - Will further discuss stroke risk vs bleeding risk with patient and his son to find best possible treatment regimen in outpatient setting. UTI (urinary tract infection) Patient's labs significant for leukocytosis and urinary tract infection. Urine cultures positive for gram negative rods. Continue to treat with Ceftriaxone. Syncope and collapse Suspect this is secondary to infectious etiology and volume depletion vs AFIB. -UA and culture are positive. -Patient with recent hx of volume loss via diarrhea, decreased appetite, increased urinary frequency -Monitor for improvement with therapy -AFib evaluation and treatment as stated above Leukocytosis WBC trending downward with most recent 10.7. Suspect secondary to UTI. Will monitor with CBC in the morning. Lactic acidosis This has resolved. Coronary artery disease History significant for CAD. Current treatment regimen include both plavix and ASA. -Discussed patient case with Dr. Weaver who recommends discontinuing both plavix and ASA as patient has thrombocytopenia. Hypertension Blood pressure is controlled. Hold lasix as to prevent further volume depletion. -Monitor closely for fluid overload. Dementia Currently being treated with donepezil HCL 5 mg. Medication side effects reviewed, significant for fainting and increased urination. I plan to educate patient on known side effects. Consider holding medication in the future. 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 Remains erythematous with associated white watery discharge. Continue with fluconazole therapy. Diabetes mellitus, controlled Patient's at home medications were reviewed. He is currently taking Invokana. This medication is know to put patient's at risk for increased urinary tract infections as well as fungal infections. Holding medication for length of admission. -I do plan to discuss diabetic treatment regimen with his primary care pro vider. -Consider discontinuing invokana and investigating different treatment options. HemA1c mildly elevated at 6.7. Blood sugar readings are consistently 100-130. Patient is placed on a consistent carb diet. Accu-Cheks before meals and at bedtime with Humalog for sliding scale coverage. Hypoglycemia protocol in place. Registered dietitian lead vulcanizing operator consulted. - Time Time Spent with patient: 25-34 minutes Medications reviewed and adjusted accordingly: Yes Anticipated Discharge Disposition: Home with Home Health Anticipated Discharge Timeframe: within 24 hours
[2020-02-01] MEDS: TRAZODONE HCL 50 MG TABLET PO SCH (22:19)
[2020-02-01] MEDS: ATORVASTATIN CALCIUM 40 MG TABLET PO SCH (22:21)
[2020-02-02] MEDS: IPRATROPIUM BROMIDE 0.06% NASAL SPRAY 15 ML NASL SCH ×3 (06:36→21:27)
[2020-02-02] MEDS: PANTOPRAZOLE SODIUM 40 MG TABLET.DR PO SCH (06:36)
[2020-02-02] MEDS: SUCRALFATE 1 GM TABLET PO SCH ×4 (07:28→21:25)
[2020-02-02] MEDS: METOPROLOL TARTRATE 25 MG TABLET PO SCH ×2 (11:23→21:26)
[2020-02-02] MEDS: APIXABAN 2.5 MG TABLET PO SCH ×2 (11:23→17:50)
[2020-02-02] MEDS: DONEPEZIL HCL 5 MG TABLET PO SCH (11:23)
[2020-02-02] MEDS: CEFTRIAXONE 1 GM/D5W RTU 1 GM/50 ML RTUPB IV SCH (11:24)
--- NOTE | 2020-02-02 17:21 | PDOC PROGRESS REPORT ---
Subjective Progress Note for:: 02/02/20 Subjective:: Patient is resting comfortably in bed listening to music. His son is at his bed side. Patient reports generalized abdominal discomfort similar to abdominal pain he has had for the past four month. Otherwise denies syncopal episodes, chest pain, palpitations, nausea, vomiting, diarrhea, constipation, pain with urination, or increased urinary frequency. Discussed case with patient's nurse. She states that patient has been pleasant and stable. Denies any further episodes of A. fib. She shares no concerns with me today. Reason For Visit: SYNCOPE,UTI Physical Exam Vital Signs: Temp Pulse Resp BP Pulse Ox 98.8 F 70 18 120/66 97 02/02/20 10:58 02/02/20 10:58 02/02/20 10:58 02/02/20 10:58 02/02/20 10:58 Intake & Output 02/01/20 02/02/20 02/03/20 06:59 06:59 06:59 Intake Total 1350 500 Output Total 4 Balance 1350 496 Weight 72.7 kg 72.2 kg General appearance: PRESENT: no acute distress, cooperative, hard of hearing, thin Head exam: PRESENT: atraumatic, normocephalic Eye exam: PRESENT: conjunctiva pink Mouth exam: PRESENT: moist, tongue midline Neck exam: PRESENT: full ROM. ABSENT: tenderness Respiratory exam: PRESENT: clear to auscultation reyes, symmetrical, unlabored. ABSENT: tachypnea Cardiovascular exam: PRESENT: RRR. ABSENT: tachycardia GI/Abdominal exam: PRESENT: normal bowel sounds, soft. ABSENT: distended, firm, guarding, tenderness Rectal exam: PRESENT: deferred Extremities exam: PRESENT: full ROM. ABSENT: calf tenderness, tenderness Musculoskeletal exam: PRESENT: ambulatory, full ROM. ABSENT: deformity, dislocation Neurological exam: PRESENT: alert, awake, oriented to person, oriented to place Psychiatric exam: PRESENT: appropriate affect, normal mood Skin exam: PRESENT: dry, warm Results Laboratory Results: 02/01/20 03:35 02/01/20 03:35 01/31/20 01/31/20 01/31/20 01:41 13:47 13:47 Creatine Kinase 61 Troponin I 0.017 0.019 NT-Pro-B Natriuret Pep 1140 H Impressions: Cervical Spine CT 09/22/20 01:21 IMPRESSION: 1. No CT evidence of acute osseous injury of the cervical spine. Chest X-Ray 01/31/20 01:21 IMPRESSION: 1. No acute cardiopulmonary process. Head CT 01/31/20 01:21 IMPRESSION: No acute intracranial abnormality. Lumbar Spine X-Ray 01/31/20 01:21 IMPRESSION: No evidence of acute displaced fracture of the lumbar spine. Scoliosis. Osteoarthritis. Small infrarenal AAA Assessment and Plan - Diagnosis (1) Atrial fibrillation, transient Is this a current diagnosis for this admission?: Yes (2) UTI (urinary tract infection) Qualifiers: Urinary tract infection type: acute cystitis Hematuria presence: without hematuria Qualified Code(s): N30.00 - Acute cystitis without hematuria Is this a current diagnosis for this admission?: Yes (3) Syncope and collapse Is this a current diagnosis for this admission?: Yes (4) Leukocytosis Is this a current diagnosis for this admission?: Yes (5) Lactic acidosis Is this a current diagnosis for this admission?: Yes (6) Coronary artery disease Qualifiers: Coronary Disease-Associated Artery/Lesion type: bypass graft [place] vs. 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 Is this a current diagnosis for this admission?: Yes (9) History of fungal skin infection Is this a current diagnosis for this admission?: Yes (10) Diabetes mellitus, controlled Qualifiers: Diabetes mellitus type: type 2 Diabetes 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 Patient's son provides much of the patient's history as patient is hard of hearing and has history of dementia. Per son pt has x4 week history of loose stools with frequent complaints of abd pain. He is currently being treated for a fungal infection with antifungal therapy for the past x4 weeks. Evaluation in the emergency department significant for leukocytosis (11.6), thrombocytopenia (110), neutrophilia, CBC otherwise unremarkable. BMP noted hyperglycemia (197), lactic acidosis (2.8), hyperbilirubinemia (1.8), elevated BNP (1140). Urine analysis indicative of urinary tract infection. Vital signs stable. Radiographic studies were unremarkable. EKG sinus rhythm rate of 72bpm, LAHB/LAFB. Patient was treated with single dose of Ceftriaxone i n the ED. Patient was subsequently refereed to hospital services for further evaluation and treatment. Patient's son was present during visit. Discussed patient's case with patient's son in detail including medication changes and discharge treatment plan. Patient's son is understanding and agreeable to this treatment plan. The patient will receive home health upon discharge. Atrial Fibrillation with ventricular response, Transient: Single transient episode of AFib noted on telemetry. He was asymptomatic at the time. This was treated with Metoprolol and Lovenox was ordered. He returned to [facility] and has not gone into AFIB since. Per sydnee's PCP patient has known history of AFIB, previously treated with warfarin. Warfarin therapy was halted due to difficulty controlling INR. - CHADVASC score 5. Eliquis 2.5mg BID initiated. - Lopressor to 25mg p.o. BID. Discussed medication changes with patient and patient's son. He is understanding and agreeable to means of treatment. UTI (urinary tract infection) Patient's labs significant for leukocytosis and urinary tract infection. Urine cultures positive for gram negative rods. Continue to treat with Ceftriaxone IV. Will discharge with Ceftriaxone PO at discharge. Syncope and collapse: No syncopal episodes during hospitalization Suspect this is secondary to infectious etiology and volume depletion vs AFIB. -UA and culture are positive. -Patient with recent hx of volume loss via diarrhea, decreased appetite, increased urinary frequency -Monitor for improvement with therapy -AFib evaluation and treatment as stated above Leukocytosis WBC trending downward with most recent 78.1 Suspect secondary to UTI. Will monitor with CBC in the morning. Lactic acidosis This has resolved. Coronary artery disease History significant for CAD. Plt count: 111. Plavix and ASA discontinued. Discussed with and advised by Dr. Weaver. Hypertension Home medications have been withheld throughout hospitalization. Blood pressure reading averaging 110/50. We will discontinue home anti-hypertensive medications Dementia Currently being treated with donepezil HCL 5 mg. Medication side effects reviewed, significant for fainting and increased urination. I plan to educate patient on known side effects. Consider holding medication. 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 Remains erythematous with associated white watery discharge. Continue with fluconazole therapy. Diabetes mellitus, controlled Patient's at home medications were reviewed. He is currently taking Invokana. This medication is know to put patient's at risk for increased urinary tract infections as well as fungal infections. Holding medication for length of admission. Plan to discontinue following discharge. -I do plan to discuss diabetic treatment regimen with his primary care provider. -Consider discontinuing invokana and investigating different treatment options. HemA1c mildly elevated at 6.7. Blood sugar readings are consistently 100-130. Patient is placed on a consistent carb diet. Accu-Cheks before meals and at bedtime with Humalog for sliding scale coverage. Hypoglycemia protocol in place. Registered dietitian health promotion officer consulted. - Time Time Spent with patient: 25-34 minutes Medications reviewed and adjusted accordingly: Yes Anticipated Discharge Disposition: Home with Home Health Anticipated Discharge Timeframe: within 24 hours
[2020-02-02] MEDS: LATANOPROST 0.005% OPH SOLN 2.5 ML OU SCH (17:50)
[2020-02-02] MEDS: ATORVASTATIN CALCIUM 40 MG TABLET PO SCH (21:26)
[2020-02-02] MEDS: TRAZODONE HCL 50 MG TABLET PO SCH (21:26)
[2020-02-03 05:33] LABS: HEMATOCRIT 44.3 % (37.9-51.0); HEMOGLOBIN 15.1 g/dL (13.5-17.0); MEAN CORPUSCULAR HEMOGLOBIN 31.6 pg (27.0-33.4); MEAN CORPUSCULAR HGB CONC 34.2 g/dL (32.0-36.0); MEAN CORPUSCULAR VOLUME 93 fl (80-97); PLATELET COUNT 111 10^3/uL (150-450); RED BLOOD COUNT 4.78 10^6/uL (4.35-5.55); WHITE BLOOD COUNT 5.1 10^3/uL (4.0-10.5)
[2020-02-03] MEDS: PANTOPRAZOLE SODIUM 40 MG TABLET.DR PO SCH (05:44)
[2020-02-03] MEDS: IPRATROPIUM BROMIDE 0.06% NASAL SPRAY 15 ML NASL SCH (05:44)
[2020-02-03 05:50] LABS: ANION GAP 9 (5-19); BLOOD UREA NITROGEN 20 mg/dL (7-20); CALCIUM 9.3 mg/dL (8.4-10.2); CARBON DIOXIDE 23 mmol/L (22-30); CHLORIDE 107 mmol/L (98-107); GLUCOSE 120 mg/dL (75-110); POTASSIUM 3.9 mmol/L (3.6-5.0)
[2020-02-03] MEDS: SUCRALFATE 1 GM TABLET PO SCH (08:16)
--- NOTE | 2020-02-03 08:20 | PDOC DISCHARGE SUMMARY ---
Impression - Admit/DC Date/PCP Admission Date/Primary Care Provider: 01/31/20 12:01 VINCENT MASTERSON MD Discharge Date: 02/03/20 - Discharge Diagnosis (1) Atrial fibrillation, transient Is this a current diagnosis for this admission?: Yes (2) UTI (urinary tract infection) Is this a current diagnosis for this admission?: Yes (3) Syncope and collapse Is this a current diagnosis for this admission?: Yes (4) Leukocytosis Is this a current diagnosis for this admission?: Yes (5) Lactic acidosis Is this a current diagnosis for this admission?: Yes (6) Coronary artery disease Is this a current diagnosis for this admission?: Yes (7) Hypertension Is this a current diagnosis for this admission?: Yes (8) Dementia Is this a current diagnosis for this admission?: Yes (9) History of fungal skin infection Is this a current diagnosis for this admission?: Yes (10) Diabetes mellitus, controlled Is this a current diagnosis for this admission?: Yes - Assessment Summary: ELIJAH RITTER is a 89 year old male with past medical history of [place] with stents, HLD, CAD, HTN, DMII, GERD, arthritis, AAA, and dementia who is brought to the emergency department by family on 01/30/2020 with concerns regarding multiple episodes of syncope. Patient's son provides much of the patient's history as patient is hard of hearing and has history of dementia. Per son pt has x4 week history of loose stools with frequent complaints of abd pain. He is currently being treated for a fungal infection with antifungal therapy for the past x4 weeks. Evaluation in the emergency department significant for leukocytosis (11.6), thrombocytopenia (110), neutrophilia, CBC otherwise unremarkable. BMP noted hyperglycemia (197), lactic acidosis (2.8), hyperbilirubinemia (1.8), elevated BNP (1140). Urine analysis indicative of urinary tract infection. Vital signs stable. Radiographic studies were unremarkable. EKG sinus rhythm rate of 72bpm, LAHB/LAFB. Patient was treated with single dose of Ceftriaxone in the ED. Patient was subsequently refereed to hospital services for further evaluation and treatment. Patient wa followed by myself and cardiology. Prior to discharge discussed patient's case with patient's son in detail including medication changes and discharge treatment plan. Patient's son is understanding and agreeable to this treatment plan. The patient will receive home health upon discharge. Patient's PCP will be contact for discussion of medication changes. Atrial Fibrillation with ventricular response, Transient: Single transient episode of AFib noted on telemetry. He was asymptomatic at the time. This was treated with Metoprolol and Lovenox was ordered. He returned to [facility] and has not gone into AFIB since. Per sydnee's PCP patient has known history of AFIB, previously treated with warfarin. Warfarin therapy was halted due to difficulty controlling INR. - CHADVASC score 5. Eliquis 2.5mg BID initiated. - Lopressor to 25mg p.o. BID. Discussed medication changes with patient and patient's son. He is understanding and agreeable to means of treatment. UTI (urinary tract infection) Patient's labs significant for leukocytosis and urinary tract infection. Urine cultures positive for gram negative rods. Treated wit IV Ceftriaxone for duration of hospitalization. Will discharge with Keflex 500mg BID x4 days. Syncope and collapse: No syncopal episodes during hospitalization Suspect this is secondary to infectious etiology and volume depletion vs AFIB. -UA and culture are positive. -Patient with recent hx of volume loss via diarrhea, decreased appetite, increased urinary frequency -Monitor for improvement with therapy -AFib evaluation and treatment as stated above Leukocytosis Resolved Lactic acidosis Resolved. Coronary artery disease History significant for CAD. Plt count: 111. Plavix and ASA discontinued. Discussed with and advised by Dr. Weaver. Hypertension Low blood pressure (average 110/50) Withheld blood pressure medications for duration of hospitalization Discontinue the following blood pressure medications -Furosemide 20mg (For fluid) -Isosorbide Mononitrate Cr 30mg (For blood pressure) Dementia Currently being treated with donepezil HCL 5 mg. Medication side effects reviewed, significant for fainting and increased urination. I plan to educate patient on known side effects. Continue medication. Consider discontinuing in the future, if no symptomatic improvement. 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 Remains erythematous with associated white watery discharge. Continue with fluconazole therapy. Diabetes mellitus, controlled Patient's at home medications were reviewed. He is currently taking Invokana. This medication is know to put patient's at risk for increased urinary tract infections as well as fungal infections. Holding medication for length of admis howard. HemA1c mildly elevated at 6.7. Blood sugar readings are consistently 100-130, without pharmacological treatment. Discontinue invokana. - Additional Information Resuscitation Status: Do Not Resuscitate Discharge Diet: As Tolerated Discharge Activity: Activity As Tolerated Referrals: VINCENT MASTERSON MD [Primary Care Provider] - Follow up as needed Prescriptions: Apixaban [Eliquis 2.5 mg Tablet] 2.5 mg PO BID #60 tablet Cephalexin Monohydrate [Keflex 500 mg Capsule] 500 mg PO BID #8 capsule Metoprolol Tartrate [Lopressor 25 mg Tablet] 25 mg PO Q12 #60 Home Medications: Atorvastatin Calcium [Lipitor 40 mg Tablet] 40 mg PO QHS 01/31/20 Bimatoprost [Lumigan 0.01% Oph Soln 2.5 ml/Bottle] 1 drop OU QPM 01/31/20 Brimonidine Tartrate [Alphagan P] 1 drop OS BID 01/31/20 Cholecalciferol (Vitamin D3) [Vitamin D3 1000 Unit Tablet] 1,000 unit PO DAILY 01/31/20 Donepezil HCl [Aricept 5 mg Tablet] 10 mg PO DAILY 01/31/20 Ipratropium [place] [Atrovent 0.06% Nasal [place]] 2 spray NASL TID 01/31/20 Nitroglycerin [Nitrostat 0.4 mg (1/150 Gr) Tabs 25/Bottle] 1 tab SL Q5MP PRN 01/31/20 Omeprazole 40 mg PO DAILY 01/31/20 Potassium Chloride [Klor-Con 10 Meq Tablet ER] 10 meq PO DAILY 01/31/20 Sucralfate [Carafate 1 gm Tablet] 1 gm PO ACHS 01/31/20 Trazodone HCl [Desyrel 50 mg Tablet] 150 mg PO QHS 01/31/20 Apixaban [Eliquis 2.5 mg Tablet] 2.5 mg PO BID #60 tablet 02/03/20 Cephalexin Monohydrate [Keflex 500 mg Capsule] 500 mg PO BID #8 capsule 02/03/20 Metoprolol Tartrate [Lopressor 25 mg Tablet] 25 mg PO Q12 #60 02/03/20 History of Present Illiness History of Present Illness: ELIJAH RITTER is a 89 year old male with past medical history of [place] with stents, HLD, CAD, HTN, DMII, GERD, arthritis, AAA, and dementia who is brought to the emergency department by family on 01/30/2020 with concerns regarding multiple episodes of his syncope. Majority of the patient's history is obtained from the son whom the patient lives with. Patient son reports 4 syncopal episodes, one of which he witnessed. Per patient's son the first syncopal episode occurred after patient stepped out of the shower to pass a bowel movement. Patient's son came home to find stool on the bathroom floor and towels. The observed stool was pasty, thick and brown in color. No blood noted. Second episode occurred when patient was in the bathroom. This was unwitnessed and patient was found unconsc ious on the bathroom floor with his brief on but shorts at his ankles. Third episode after patient stood up from being in bed to go to the bathroom. He fell to the floor but maintained consciousness and recalls event. Fourth episode was witnessed. Patient and his son were walking down the stairs when patient asked to sit down, patient closed his eyes, rested his head on his son's arm, became stiff and came to within one minute. Per patient's son patient has 4 week history of frequent loose stools with associated lower abdominal pain. 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 Current 4 week history penile infection, on Fluconazole PO. Patient has reportedly been complaining of dysuria with associated increased urinary frequency. When asked patient only complains of back pain. This is reportedly ongoing but has recently increased in severity since syncopal episodes. Evaluation in the emergency department significant for leukocytosis (11.6), thrombocytopenia (110), neutrophilia, CBC otherwise unremarkable. BMP noted hyperglycemia (197), lactic acidosis (2.8), hyperbilirubinemia (1.8), elevated BNP (1140). Urine analysis indicative of urinary tract infection. Vital signs stable. Radiographic studies were unremarkable. EKG sinus rhythm rate of 72bpm, LAHB/LAFB. Patient was treated with single dose of Ceftriaxone in the ED. Patient was subsequently refereed to hospital services for further evaluation and treatment. Physical Exam Vital Signs: Temp Pulse Resp BP Pulse Ox 97.8 F 57 L 17 147/77 H 99 02/03/20 04:20 02/03/20 04:20 02/03/20 04:20 02/03/20 04:20 02/03/20 04:20 Intake & Output 02/02/20 02/03/20 02/04/20 06:59 06:59 06:59 Intake Total 500 170 Output Total 4 Balance 496 170 Weight 72.2 kg 70.5 kg General appearance: PRESENT: no acute distress, cooperative, hard of hearing Head exam: PRESENT: atraumatic, normocephalic Eye exam: PRESENT: conjunctiva pink. ABSENT: scleral icterus Mouth exam: PRESENT: moist, tongue midline Neck exam: PRESENT: full ROM. ABSENT: JVD, tenderness Respiratory exam: PRESENT: clear to auscultation reyes, symmetrical, unlabored. ABSENT: chest wall tenderness, tachypnea Cardiovascular exam: PRESENT: RRR, +S1, +S2. ABSENT: diastolic murmur, systolic murmur GI/Abdominal exam: PRESENT: normal bowel sounds, soft. ABSENT: distended, guarding, rebound, tenderness Rectal exam: PRESENT: deferred Extremities exam: PRESENT: full ROM. ABSENT: clubbing, pedal edema Musculoskeletal exam: PRESENT: ambulatory, full ROM. ABSENT: deformity, dislocation Neurological exam: PRESENT: alert, awake, oriented to person, oriented to place. ABSENT: motor sensory deficit Psychiatric exam: PRESENT: appropriate affect, normal mood Skin exam: PRESENT: dry, warm. ABSENT: jaundice Results Laboratory Results: WBC 5.1 10^3/uL (4.0-10.5) 02/03/20 04:49 RBC 4.78 10^6/uL (4.35-5.55) 02/03/20 04:49 Hgb 15.1 g/dL (13.5-17.0) 02/03/20 04:49 Hct 44.3 % (37.9-51.0) 02/03/20 04:49 MCV 93 fl (80-97) 02/03/20 04:49 MCH 31.6 pg (27.0-33.4) 02/03/20 04:49 MCHC 34.2 g/dL (32.0-36.0) 02/03/20 04:49 RDW 14.0 % (11.5-14.0) 02/03/20 04:49 Plt Count 111 10^3/uL (150-450) L 02/03/20 04:49 Lymph % (Auto) 8.4 % (13-45) L 01/31/20 13:47 [place] % (Auto) 9.8 % (3-13) 01/31/20 13:47 Eos % (Auto) 0.2 % (0-6) 01/31/20 13:47 Baso % (Auto) 0.7 % (0-2) 01/31/20 13:47 Absolute Neuts (auto) 9.4 10^3/uL (1.7-8.2) H 01/31/20 13:47 Absolute Lymphs (auto) 1.0 10^3/uL (0.5-4.7) 01/31/20 13:47 Absolute Monos (auto) 1.1 10^3/uL (0.1-1.4) 01/31/20 13:47 Absolute Eos (auto) 0.0 10^3/uL (0.0-0.6) 01/31/20 13:47 Absolute Basos (auto) 0.1 10^3/uL (0.0-0.2) 01/31/20 13:47 Seg Neutrophils % 80.9 % (42-78) H 01/31/20 13:47 PT 14.6 SEC (11.4-15.4) 01/31/20 01:41 INR 1.12 01/31/20 01:41 APTT 30.3 SEC (23.5-35.8) 01/31/20 01:41 Sodium 138.7 mmol/L (137-145) 02/03/20 04:49 Potassium 3.9 mmol/L (3.6-5.0) 02/03/20 04:49 Chloride 107 mmol/L (98-107) 02/03/20 04:49 Carbon Dioxide 23 mmol/L (22-30) 02/03/20 04:49 Anion Gap 9 (5-19) 02/03/20 04:49 BUN 20 mg/dL (7-20) 02/03/20 04:49 Creatinine 1.04 mg/dL (0.52-1.25) 02/03/20 04:49 Est GFR ( Amer) > 60 (>60) 02/03/20 04:49 Est GFR (MDRD) Non-Af > 60 (>60) 02/03/20 04:49 Glucose 120 mg/dL (75-110) H 09/25/20 04:49 POC Glucose 111 mg/dL (70-110) H 02/02/20 15:35 Hemoglobin A1c % 6.7 % (4.7-6.0) H 01/31/20 13:47 Lactic Acid 1.6 mmol/L (0.7-2.1) 02/01/20 03:35 Calcium 9.3 mg/dL (8.4-10.2) 02/03/20 04:49 Phosphorus 2.8 mg/dL (2.5-4.5) 01/31/20 13:47 Magnesium 2.4 mg/dL (1.6-2.3) H 02/03/20 04:49 Total Bilirubin 1.5 mg/dL (0.2-1.3) H 02/01/20 03:35 Direct Bilirubin 0.4 mg/dL (0.0-0.4) 02/01/20 03:35 Neonat Total Bilirubin Not Reportable 02/01/20 03:35 Neonat Direct Bilirubin Not Reportable 02/01/20 03:35 Neonat Indirect Bili Not Reportable 02/01/20 03:35 AST 27 U/L (17-59) 02/01/20 03:35 ALT 23 U/L (<50) 02/01/20 03:35 Alkaline Phosphatase 55 U/L (38-126) 02/01/20 03:35 Creatine Kinase 61 U/L (55-170) 01/31/20 13:47 Troponin I 0.019 ng/mL 01/31/20 13:47 NT-Pro-B Natriuret Pep 1140 pg/mL (<450) H 01/31/20 13:47 Total Protein 5.4 g/dL (6.3-8.2) L 02/01/20 03:35 Albumin 3.1 g/dL (3.5-5.0) L 02/01/20 03:35 Urine Color YELLOW 01/31/20 01:55 Urine Appearance CLOUDY 01/31/20 01:55 Urine pH 5.0 (5.0-9.0) 01/31/20 01:55 Ur Specific [place] 1.026 01/31/20 01:55 Urine Protein 30 mg/dL (NEGATIVE) H 01/31/20 01:55 Urine Glucose (UA) >=500 mg/dL (NEGATIVE) H 01/31/20 01:55 Urine Ketones NEGATIVE mg/dL (NEGATIVE) 01/31/20 01:55 Urine Blood LARGE (NEGATIVE) H 01/31/20 01:55 Urine Nitrite (Reflex) NEGATIVE (NEGATIVE) 01/31/20 01:55 Urine Bilirubin NEGATIVE (NEGATIVE) 01/31/20 01:55 Urine Urobilinogen NEGATIVE mg/dL (<2.0) 01/31/20 01:55 Leukocyte Esterase Rfl LARGE (NEGATIVE) H 01/31/20 01:55 Urine RBC (Auto) 36 /HPF 01/31/20 01:55 Urine Bacteria (Auto) TRACE /HPF 01/31/20 01:55 Urine WBC (Reflex) > 182 /HPF 01/31/20 01:55 Urine WBC Clumps MOD /HPF 01/31/20 01:55 Squamous Epi Cells Auto <1 /HPF 01/31/20 01:55 Urine Mucus (Auto) RARE /LPF 01/31/20 01:55 Urine Ascorbic Acid NEGATIVE (NEGATIVE) 01/31/20 01:55 01/31/20 01/31/20 01:41 13:47 Troponin I 0.017 0.019 NT-Pro-B Natriuret Pep 1140 H Impressions: Cervical Spine CT 01/31/20 01:21 IMPRESSION: 1. No CT evidence of acute osseous injury of the cervical spine. Chest X-Ray 01/31/20 01:21 IMPRESSION: 1. No acute cardiopulmonary process. Head CT 01/31/20 01:21 IMPRESSION: No acute intracranial abnormality. Lumbar Spine X-Ray 01/31/20 01:21 IMPRESSION: No evidence of acute displaced fracture of the lumbar spine. Scoliosis. Osteoarthritis. Small infrarenal AAA Plan Health Concerns: Atrial fibrillation, transient need for anticoagulation. -Risk for stroke, risk for bleed Plan of Treatment: Treat UTI as discussed. Treat atrial fibrillation as discussed. Discontinue discussed home medications. Goals: Continue appropriate treatment and management of patient with less medications. Time Spent: Greater than 30 Minutes Stroke Is this a Stroke Patient?: No Acute Heart Failure Is this a Heart Failure Patient?: No
[2020-02-03 08:33] VITALS: BP 128/78
[2020-02-03] MEDS: APIXABAN 2.5 MG TABLET PO SCH (09:07)
[2020-02-03] MEDS: METOPROLOL TARTRATE 25 MG TABLET PO SCH (09:08)
[2020-02-03] MEDS: DONEPEZIL HCL 5 MG TABLET PO SCH (09:21)
== END 2020-02-03 09:23 | disposition home health service (06) | DRG 690 ==
LOC: ER 00:38 → EH 12:01 → 4N 15:43
PROVIDERS: ADMIT Hospitalist; ATTEND Hospitalist
DX: N30.00 Acute cystitis without hematuria (principal); E87.2 Acidosis; I25.810 Atherosclerosis of coronary artery bypass graft(s) without angina pectoris; F03.91 Unspecified dementia, unspecified severity, with behavioral disturbance; I10 Essential (primary) hypertension; E78.5 Hyperlipidemia, unspecified; D69.6 Thrombocytopenia, unspecified; E11.65 Type 2 diabetes mellitus with hyperglycemia; I48.0 Paroxysmal atrial fibrillation; E11.51 Type 2 diabetes mellitus with diabetic peripheral angiopathy without gangrene; F17.210 Nicotine dependence, cigarettes, uncomplicated; K21.9 Gastro-esophageal reflux disease without esophagitis; Z66 Do not resuscitate; E78.00 Pure hypercholesterolemia, unspecified; W18.30XA Fall on same level, unspecified, initial encounter; I25.2 Old myocardial infarction; Z86.19 Personal history of other infectious and parasitic diseases; Y92.003 Bedroom of unspecified non-institutional (private) residence as the place of occurrence of the external cause; Z95.5 Presence of coronary angioplasty implant and graft; Z95.1 Presence of aortocoronary bypass graft; Z79.899 Other long term (current) drug therapy; Z79.01 Long term (current) use of anticoagulants; Z87.891 Personal history of nicotine dependence; Z79.82 Long term (current) use of aspirin; Z79.02 Long term (current) use of antithrombotics/antiplatelets
CPT/HCPCS: 36415; 70450; 71045; 72110; 72125; 80048; 80053; 81001; 82550; 82962; 83036; 83605; 83735; 83880; 84100; 84484; 85025; 85027; 85610; 85730; 87040; 87070; 87086; 87088; 87186; 93005; 93010; 96365; 99285; J0696; J3490; J7030